=== PATIENT | male | born 1960 | race Caucasian/White ===

== ENCOUNTER → 2018-06-15 13:30 | Outpatient (CLI) | payer OTHER, SELFPAY ==
[2018-06-15 14:33] LABS: Add Manual Diff / Slide Review NO; Basophils Percent Auto 0.2 % (0-2); Eosinophils Percent Auto 1.6 % (2-4); Hematocrit 41.8 % (41-53); Hemoglobin 14.1 g/dL (13.5-17.5); Lymphocytes Percent Auto 30.2 % (25-40); Mean Corpuscular HGB Conc 33.7 % (30-36); Mean Corpuscular Hemoglobin 30.8 PG (26-34); Mean Corpuscular Volume 91.6 fL (80-100); Monocytes Percent Auto 7.4 % (3-14); Neutrophils Absolute Auto 3700 /uL (3000-5900); Neutrophils Percent Auto 60.6 % (50-75); Platelet Count 207 X10^3/uL (150-400); Red Blood Cell Count 4.56 X10^6/uL (4.5-5.9); Red Cell Distribution Width 14.2 % (11.6-14.8)
[2018-06-15 14:53] LABS: Alanine Aminotransferase 32 IU/L (21-72); Albumin 4.3 g/dL (3.5-5.0); Albumin Globulin Ratio 1.8 (1.0-2.8); Alkaline Phosphatase 70 U/L (38-126); Aspartate Aminotransferase 31 IU/L (17-59); Bilirubin Total 0.7 mg/dL (0.2-1.3); Blood Urea Nitrogen 18 mg/dL (9-20); Calcium 9.1 mg/dL (8.4-10.2); Carbon Dioxide 27 mmol/L (22-32); Chloride 106 mmol/L (98-107); Estimated Glomerular Filt Rate > 60.0 mL/min (>60); Globulin 2.4 g/dL (1.7-4.1); Glucose 91 mg/dL (70-100); HEMOLYSIS < 15 (0-50); Magnesium 2.2 mg/dL (1.6-2.3); Potassium 3.9 mmol/L (3.4-5.1); Sodium 141 mmol/L (137-145); Total Protein 6.7 g/dL (6.3-8.2)
[2018-06-15 15:46] LABS: Thyroid Stimulating Hormone 3.02 uIU/mL (0.47-4.68)
== END ==
PROVIDERS: PCP Family Medicine; Visit Provider Family Medicine
DX: R00.2 Palpitations (principal)
CPT/HCPCS: 36415; 80053; 83735; 84443; 85025

== ENCOUNTER 2019-10-17 09:00 | Outpatient (RCR) | payer OTHER, SELFPAY ==
--- NOTE | 2019-08-24 16:23 | PT.OIE ---
Current Diagnoses Unilateral primary osteoarthritis, right knee (08/24/19) Pain in right knee (08/24/19) Other abnormalities of gait and mobility (08/24/19) Arthrodesis status (08/24/19) Past Surgical History Status post knee surgery Visit Care Team Role Provider Type Jaylen Cary MD Primary Care Provider Physician Specialty: Family Practice Address: [address] [place] [address], [id number] Email: [email or web address] [email or web address] Norton PA-C Attending Provider Non-Staff Specialty: Medical Address: [address] [place] [address], [id number] Email: Physical Therapy Initial Evaluation PT-OP-A Visit Information Start: 08/24/19 07:20 Freq: Status: Active Protocol: Document 08/24/19 09:00 AMB (Rec: 08/24/19 14:19 AMB [email or web address]) Out-Patient Physical Therapy Visit Information Visit Information Visit Type Initial Evaluation Visit Start Time 09:00 Visit Stop Time 10:00 Total Visit Minutes 60 Visit Number 1 PT-OP-B Current Condition Start: 08/24/19 07:20 Freq: Status: Active Protocol: Document 08/24/19 09:00 AMB (Rec: 08/24/19 14:19 AMB [email or web address]) Current Condition History of Current Condition Onset Date 08/18/19 Current Complaints pain/weakness s/p R PKA History of Current Condition Juliano reports he had a partial knee replacement a week ago after years of right knee pain from an accident in high school that resulted in meniscectomy. He was a runner but reports significant difficulty engaging his quads even before surgery (reports doing 100# knee extension with the left and only 5# with the right prior to surgery). 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 He lives with his in a home with stairs but he lives on the main level and is not currently using the stairs. Prior Functional Status Baseline Function- ADL's Independent Baseline Function- Mobility Independent Baseline Function- Recreation/Hobbies Pain with running, weakness in quads Current Functional Impairments (Reported) Functional Limitations- Mobility/Gait Difficulty walking, stairs, unable to work due to needing to be on a boat/ getting up and down ladder. Personal Factors Other Personal Factors That May Effect Pt reports pain/anxiety with Therapy/Recovery moving knee. Longstanding history of weakness/pain in R knee. PT-OP-C Subjective Start: 08/24/19 07:20 Freq: Status: Active Protocol: Document 08/24/19 09:00 AMB (Rec: 08/24/19 14:19 AMB [email or web address]) Patient Questionnaires Lower Extremity Functional Scale LEFS Score 9 LEFS Impairment 1 to 19% Impaired (Score 63-79 ) OP-PT Pain Assessment Location Right Knee Pain Location Details R anterior knee Intensity 6 Scale Used Numeric (1 - 10) PT-OP-G Mobility & Gait Start: 08/24/19 07:20 Freq: Status: Active Protocol: Document 08/24/19 09:00 AMB (Rec: 08/24/19 14:29 AMB [email or web address]) OP Gait Assessment Comments Gait Comments Juliano attends PT without SPC and significant antalgic gait. He states he has a walker and a cane at home but doesn't like them. Stiff knee throughout gait- lacks knee flexion in swing and terminal knee extension. PT-OP-J Posture/Palpation/Skin Start: 08/24/19 07:20 Freq: Status: Active Protocol: Document 08/24/19 09:00 AMB (Rec: 08/24/19 14:29 AMB [email or web address]) Skin Assessment Other Assessments Skin Assessment Comments Incision covered by gauze and tape- pt and state steri strips are intact. Bruising ( light green) present down lateral calf and at popliteal fossa. No redness, no pitting edema, but post-operative swelling present. PT-OP-K Range of Motion Start: 08/24/19 07:20 Freq: Status: Active Protocol: Document 08/24/19 09:00 AMB (Rec: 08/24/19 14:29 AMB [email or web address]) Knee Goniometric Range of Motion Knee Right Patient Position Supine Flexion Active (degrees) 70 Flexion Passive (degrees) 73 Extension Active (degrees) 10 Extension Passive (degrees) 7 Left Patient Position Supine Flexion Active (degrees) 170 Extension Active (degrees) 0 PT-OP-M Strength Start: 08/24/19 07:20 Freq: Status: Active Protocol: Document 08/24/19 09:00 AMB (Rec: 08/24/19 16:03 AMB [email or web address]) Knee Strength Knee Manual Muscle Testing Right Flexion (S2) 4 Good Extension (L3) 2 Poor Left Flexion (S2) 5 Normal Extension (L3) 5 Normal PT-OP-Q Treatments Start: 08/24/19 07:20 Freq: Status: Active Protocol: Document 08/24/19 09:00 AMB (Rec: 08/24/19 16:03 AMB [email or web address]) Therapeutic Exercises Supine Exercises 3 Supine Exercise Name SLR Reps/Minutes 10 2 Supine Exercise Name SAQ Reps/Minutes 10 1 Supine Exercise Name heel slide Reps/Minutes 10 Gait Training Gait Activity 1 Description SPC training Device Used SPC Level of Assistance verbal cues for timing of cane , encouraged knee flexion with swing Surface firm PT-OP-R Modalities Start: 08/24/19 07:20 Freq: Status: Active Protocol: Document 08/24/19 09:00 AMB (Rec: 08/24/19 16:23 AMB [email or web address]) Hot Pack/Cold Pack Treatment Cold Pack Location R knee Patient Position Hooklying Treatment Duration (minutes) 10 Patient Tolerance Good Comments cryocuff PT-OP-T Assessment and Plan Start: 08/24/19 07:20 Freq: Status: Active Protocol: Document 08/24/19 09:00 AMB (Rec: 08/24/19 16:21 AMB [email or web address]) Physical Therapy Assessment Rehab Potential Rehabilitation Potential Good Evaluation Complexity Number of Personal Factors/Comorbidities 1-2 Number of Body Systems Impaired 4 or More Clinical Presentation at Evaluation Stable Impairments Impairments Balance,Edema,Functional Activities,Gait,Pain,ROM, Strength Goals Three Impairment ROM Short Term Goal (STG) Juliano will improve his R knee PROM to 4-100. STG Duration 4 weeks Airport Operations Officer Goal (LTG) Juliano will improve his R knee AROM to 0-120. LTG Duration 12 weeks Two Impairment strength Short Term Goal (STG) Juliano will activate his quad so that he can perform a straight leg raise without quad lag. STG Duration 4 weeks Airport Operations Officer Goal (LTG) Juliano will improve his strength so that he can perform a full squat with equal weightbearing without increasing his baseline pain. LTG Duration 12 weeks One Impairment gait Short Term Goal (STG) Juliano will improve his gait so that he can walk without AD for 5 minutes over smooth surfaces without antalgic gait . STG Duration 4 weeks Halfway Goal (LTG) Juliano will ascend and descend a flight of stairs without a railing and with an alternating gait pattern. LTG Duration 8 weeks Assessment Summary Assessment Juliano attends physical therapy 1 week s/p partial knee replacement on the R. He is restricted into both flexion and extension, has poor gait mechanics, and has poor quad control. He will need a good improvement in function, given his prior high level of function as a commercial plumber. He will benefit from physical therapy to improve his gait, ROM, and strength, but the chronic nature of his pain and weakness may make rehab more challenging. Physical Therapy Plan Frequency and Duration Frequency of Treatment 2x/Week Duration of Treatment 12 weeks Plan of Care Start Date 08/24/19 Plan of Care End Date 11/16/19 Therapeutic Interventions Therapeutic Interventions Aquatic Therapy,Gait Training, Home Exercise Program,Joint Mobilizations,Manual Therapy, Neuromuscular Re-education, Self-Care/Home Management,Soft Tissue Mobilization, Therapeutic Activities, Therapeutic Exercises Modalities Cold Pack/Ice Massage,Electric Stimulation,Hot Packs Next Visit Focus/Plan Next Note Type Treatment Note Next Visit Plan Progress ROM, strength, gait. Pt interested in getting back to the gym, so encourage safety with that.
--- NOTE | 2019-08-29 13:59 | PT.OTN ---
Current Diagnoses Unilateral primary osteoarthritis, right knee (08/29/19) Pain in right knee (08/29/19) Other abnormalities of gait and mobility (08/29/19) Arthrodesis status (08/29/19) Physical Therapy Treatment Note PT-OP-A Visit Information Start: 08/24/19 07:20 Freq: Status: Active Protocol: Document 08/29/19 12:14 MB (Rec: 08/29/19 13:58 MB [id number]) Out-Patient Physical Therapy Visit Information Visit Information Visit Type Treatment Note Visit Start Time 12:14 Visit Stop Time 12:59 Total Visit Minutes 45 Visit Number 2 Number of AWNING INSTALLER Visits 0 PT-OP-B Current Condition Start: 08/24/19 07:20 Freq: Status: Active Protocol: Document 08/24/19 09:00 AMB (Rec: 08/24/19 14:19 AMB [email or web address]) Current Condition History of Current Condition Onset Date 08/18/19 Current Complaints pain/weakness s/p R PKA History of Current Condition Juliano reports he had a partial knee replacement a week ago after years of right knee pain from an accident in high school that resulted in meniscectomy. He was a runner but reports significant difficulty engaging his quads even before surgery (reports doing 100# knee extension with the left and only 5# with the right prior to surgery). 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 He lives with his in a home with stairs but he lives on the main level and is not currently using the stairs. Prior Functional Status Baseline Function- ADL's Independent Baseline Function- Mobility Independent Baseline Function- Recreation/Hobbies Pain with running, weakness in quads Current Functional Impairments (Reported) Functional Limitations- Mobility/Gait Difficulty walking, stairs, unable to work due to needing to be on a boat/ getting up and down ladder. Personal Factors Other Personal Factors That May Effect Pt reports pain/anxiety with Therapy/Recovery moving knee. Longstanding history of weakness/pain in R knee. PT-OP-C Subjective Start: 08/24/19 07:20 Freq: Status: Active Protocol: Document 08/29/19 12:14 MB (Rec: 08/29/19 13:01 MB [id number]) OP-PT Subjective Patient Comments Patient Comments Pt states that he is now only taking Advil. He is moving a lot better. He is driving. He can go up stairs. He's climbed a ladder. PT encourages him not to do this. He is waking up at night. His sleep is affected. He is waking up about midnight. Patient Reported Progress Improving OP-PT Pain Assessment Location Right Knee Pain Location Details Right anterior knee, not rated PT-OP-G Mobility & Gait Start: 08/24/19 07:20 Freq: Status: Active Protocol: Document 08/24/19 09:00 AMB (Rec: 08/24/19 14:29 AMB [email or web address]) OP Gait Assessment Comments Gait Comments Juliano attends PT without SPC and significant antalgic gait. He states he has a walker and a cane at home but doesn't like them. Stiff knee throughout gait- lacks knee flexion in swing and terminal knee extension. PT-OP-J Posture/Palpation/Skin Start: 08/24/19 07:20 Freq: Status: Active Protocol: Document 08/24/19 09:00 AMB (Rec: 08/24/19 14:29 AMB [email or web address]) Skin Assessment Other Assessments Skin Assessment Comments Incision covered by gauze and tape- pt and state steri strips are intact. Bruising ( light green) present down lateral calf and at popliteal fossa. No redness, no pitting edema, but post-operative swelling present. PT-OP-K Range of Motion Start: 08/24/19 07:20 Freq: Status: Active Protocol: Document 08/24/19 09:00 AMB (Rec: 08/24/19 14:29 AMB [email or web address]) Knee Goniometric Range of Motion Knee Right Patient Position Supine Flexion Active (degrees) 70 Flexion Passive (degrees) 73 Extension Active (degrees) 10 Extension Passive (degrees) 7 Left Patient Position Supine Flexion Active (degrees) 170 Extension Active (degrees) 0 PT-OP-M Strength Start: 08/24/19 07:20 Freq: Status: Active Protocol: Document 08/24/19 09:00 AMB (Rec: 08/24/19 16:03 AMB [email or web address]) Knee Strength Knee Manual Muscle Testing Right Flexion (S2) 4 Good Extension (L3) 2 Poor Left Flexion (S2) 5 Normal Extension (L3) 5 Normal PT-OP-Q Treatments Start: 08/24/19 07:20 Freq: Status: Active Protocol: Document 08/29/19 12:14 MB (Rec: 08/29/19 13:01 MB [id number]) Cardio Equipment Recumbent Elliptical (Biodex) Duration (Minutes) 10 Resistance 1-4 Other Cardio Equipment Other Cardio Equipment Tried recumbent bike but pt cannot flex knee enough Therapeutic Exercises Supine Exercises Brad stretch Comments Brad stretch Hamstring, calf and AP stretch Supine Exercise Name Adductor/abductor stretch along with this Comments Use of belt (pt to use boat line at home), hamstring, calf and AP stretch Manual Therapy Treatment Soft Tissue Mobilization R rectus, vastus lateralis Comments STM right rectus and vastus lateralis, manual and with use of rolling pin. Self-Care/Home Management Treatment Education Other Education Use of Tubagrip for compression 1-2 hours before bed, elevation, icing Wear thigh high compression when driving, sitting PT-OP-R Modalities Start: 08/24/19 07:20 Freq: Status: Active Protocol: Document 08/24/19 09:00 AMB (Rec: 08/24/19 16:23 AMB [email or web address]) Hot Pack/Cold Pack Treatment Cold Pack Location R knee Patient Position Hooklying Treatment Duration (minutes) 10 Patient Tolerance Good Comments cryocuff PT-OP-T Assessment and Plan Start: 08/24/19 07:20 Freq: Status: Active Protocol: Document 08/29/19 12:14 MB (Rec: 08/29/19 13:01 MB [id number]) Physical Therapy Assessment Assessment Summary Assessment Increased tension quads, ITB and hip adductors with Brad stretch right LE. Manual work on rectus femoris and vastus laterlis today. Physical Therapy Plan Frequency and Duration Frequency of Treatment 2x/Week Duration of Treatment 12 weeks Plan of Care Start Date 08/24/19 Plan of Care End Date 11/16/19 Therapeutic Interventions Therapeutic Interventions Aquatic Therapy,Gait Training, Home Exercise Program,Joint Mobilizations,Manual Therapy, Neuromuscular Re-education, Self-Care/Home Management,Soft Tissue Mobilization, Therapeutic Activities, Therapeutic Exercises Modalities Cold Pack/Ice Massage,Electric Stimulation,Hot Packs Next Visit Focus/Plan Next Note Type Treatment Note Next Visit Plan Consider teaching rolling pin self-massage
--- NOTE | 2019-08-31 08:00 | PT.OTN ---
Current Diagnoses Unilateral primary osteoarthritis, right knee (08/31/19) Pain in right knee (08/31/19) Other abnormalities of gait and mobility (08/31/19) Arthrodesis status (08/31/19) Physical Therapy Treatment Note PT-OP-A Visit Information Start: 08/24/19 07:20 Freq: Status: Active Protocol: Document 08/31/19 07:29 MB (Rec: 08/31/19 08:00 MB [id number]) Out-Patient Physical Therapy Visit Information Visit Information Visit Type Treatment Note Visit Start Time 07:29 Visit Stop Time 08:14 Total Visit Minutes 45 Visit Number 3 Number of ROCK LOADER Visits 0 PT-OP-B Current Condition Start: 08/24/19 07:20 Freq: Status: Active Protocol: Document 08/24/19 09:00 AMB (Rec: 08/24/19 14:19 AMB [email or web address]) Current Condition History of Current Condition Onset Date 08/18/19 Current Complaints pain/weakness s/p R PKA History of Current Condition Juliano reports he had a partial knee replacement a week ago after years of right knee pain from an accident in high school that resulted in meniscectomy. He was a runner but reports significant difficulty engaging his quads even before surgery (reports doing 100# knee extension with the left and only 5# with the right prior to surgery). 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 He lives with his in a home with stairs but he lives on the main level and is not currently using the stairs. Prior Functional Status Baseline Function- ADL's Independent Baseline Function- Mobility Independent Baseline Function- Recreation/Hobbies Pain with running, weakness in quads Current Functional Impairments (Reported) Functional Limitations- Mobility/Gait Difficulty walking, stairs, unable to work due to needing to be on a boat/ getting up and down ladder. Personal Factors Other Personal Factors That May Effect Pt reports pain/anxiety with Therapy/Recovery moving knee. Longstanding history of weakness/pain in R knee. PT-OP-C Subjective Start: 08/24/19 07:20 Freq: Status: Active Protocol: Document 08/31/19 07:29 MB (Rec: 08/31/19 08:00 MB [id number]) OP-PT Subjective Patient Comments Patient Comments Pt is still waking up after 4 hours of sleep. He is sleeping in the day some. Ed to place pillow under his knees when he wakes up to help pain. Pt states that he is doing 3 sets of SLR, SAQ and LAQ and c/o pain but is not as open to changing reps or other suggestions. He is having trouble finding a place doing Brad stretch. PT-OP-G Mobility & Gait Start: 08/24/19 07:20 Freq: Status: Active Protocol: Document 08/24/19 09:00 AMB (Rec: 08/24/19 14:29 AMB [email or web address]) OP Gait Assessment Comments Gait Comments Juliano attends PT without SPC and significant antalgic gait. He states he has a walker and a cane at home but doesn't like them. Stiff knee throughout gait- lacks knee flexion in swing and terminal knee extension. PT-OP-J Posture/Palpation/Skin Start: 08/24/19 07:20 Freq: Status: Active Protocol: Document 08/24/19 09:00 AMB (Rec: 08/24/19 14:29 AMB [email or web address]) Skin Assessment Other Assessments Skin Assessment Comments Incision covered by gauze and tape- pt and state steri strips are intact. Bruising ( light green) present down lateral calf and at popliteal fossa. No redness, no pitting edema, but post-operative swelling present. PT-OP-K Range of Motion Start: 08/24/19 07:20 Freq: Status: Active Protocol: Document 08/24/19 09:00 AMB (Rec: 08/24/19 14:29 AMB [email or web address]) Knee Goniometric Range of Motion Knee Right Patient Position Supine Flexion Active (degrees) 70 Flexion Passive (degrees) 73 Extension Active (degrees) 10 Extension Passive (degrees) 7 Left Patient Position Supine Flexion Active (degrees) 170 Extension Active (degrees) 0 PT-OP-M Strength Start: 08/24/19 07:20 Freq: Status: Active Protocol: Document 08/24/19 09:00 AMB (Rec: 08/24/19 16:03 AMB [email or web address]) Knee Strength Knee Manual Muscle Testing Right Flexion (S2) 4 Good Extension (L3) 2 Poor Left Flexion (S2) 5 Normal Extension (L3) 5 Normal PT-OP-Q Treatments Start: 08/24/19 07:20 Freq: Status: Active Protocol: Document 08/31/19 07:29 MB (Rec: 08/31/19 08:00 MB [id number]) Cardio Equipment Recumbent Elliptical (Biodex) Duration (Minutes) 15 Resistance 4-5.2 Therapeutic Exercises Supine Exercises 3 Supine Exercise Name SLR Reps/Minutes 5 counting slowly up and down Sitting Exercises Rolling pin massage Sitting Exercise Name Rolling pin massage, see saw motion LAQ with ball between knees Sitting Exercise Name LAQ with ball between knees, 10 reps Manual Therapy Treatment Other Other Manual Treatments Rolling pin right quad and vastus lateralis STM PT-OP-R Modalities Start: 08/24/19 07:20 Freq: Status: Active Protocol: Document 08/24/19 09:00 AMB (Rec: 08/24/19 16:23 AMB [email or web address]) Hot Pack/Cold Pack Treatment Cold Pack Location R knee Patient Position Hooklying Treatment Duration (minutes) 10 Patient Tolerance Good Comments cryocuff PT-OP-T Assessment and Plan Start: 08/24/19 07:20 Freq: Status: Active Protocol: Document 08/31/19 07:29 MB (Rec: 08/31/19 08:00 MB [id number]) Physical Therapy Assessment Goals Three Impairment ROM Short Term Goal (STG) Juliano will improve his R knee PROM to 4-100. STG Duration 4 weeks Group Home Goal (LTG) Juliano will improve his R knee AROM to 0-120. LTG Duration 12 weeks Two Impairment strength Short Term Goal (STG) Juliano will activate his quad so that he can perform a straight leg raise without quad lag. STG Duration 4 weeks Arc Welder Goal (LTG) Juliano will improve his strength so that he can perform a full squat with equal weightbearing without increasing his baseline pain. LTG Duration 12 weeks One Impairment gait Short Term Goal (STG) Juliano will improve his gait so that he can walk without AD for 5 minutes over smooth surfaces without antalgic gait . STG Duration 4 weeks Group Home Goal (LTG) Juliano will ascend and descend a flight of stairs without a railing and with an alternating gait pattern. LTG Duration 8 weeks Progress Towards Goals Progress Comments Pt states that he feels he is getting better. He is still not sleeping well. He con't with antalgic gait with cane. Assessment Summary Assessment Initated rolling pin on right quad this date. Physical Therapy Plan Frequency and Duration Frequency of Treatment 2x/Week Duration of Treatment 12 weeks Plan of Care Start Date 08/24/19 Plan of Care End Date 11/16/19 Therapeutic Interventions Therapeutic Interventions Aquatic Therapy,Gait Training, Home Exercise Program,Joint Mobilizations,Manual Therapy, Neuromuscular Re-education, Self-Care/Home Management,Soft Tissue Mobilization, Therapeutic Activities, Therapeutic Exercises Modalities Cold Pack/Ice Massage,Electric Stimulation,Hot Packs Next Visit Focus/Plan Next Note Type Treatment Note Next Visit Plan Consider progression, try stationary bike, progress to shuttle
--- NOTE | 2019-08-31 08:05 | PT.OTN ---
Current Diagnoses Unilateral primary osteoarthritis, right knee (08/31/19) Pain in right knee (08/31/19) Other abnormalities of gait and mobility (08/31/19) Arthrodesis status (08/31/19) Physical Therapy Treatment Note PT-OP-A Visit Information Start: 08/24/19 07:20 Freq: Status: Active Protocol: Document 08/31/19 07:29 MB (Rec: 08/31/19 08:00 MB [id number]) Out-Patient Physical Therapy Visit Information Visit Information Visit Type Treatment Note Visit Start Time 07:29 Visit Stop Time 08:14 Total Visit Minutes 45 Visit Number 3 Number of COOLER MAN Visits 0 PT-OP-B Current Condition Start: 08/24/19 07:20 Freq: Status: Active Protocol: Document 08/24/19 09:00 AMB (Rec: 08/24/19 14:19 AMB [email or web address]) Current Condition History of Current Condition Onset Date 08/18/19 Current Complaints pain/weakness s/p R PKA History of Current Condition Juliano reports he had a partial knee replacement a week ago after years of right knee pain from an accident in high school that resulted in meniscectomy. He was a runner but reports significant difficulty engaging his quads even before surgery (reports doing 100# knee extension with the left and only 5# with the right prior to surgery). 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 He lives with his in a home with stairs but he lives on the main level and is not currently using the stairs. Prior Functional Status Baseline Function- ADL's Independent Baseline Function- Mobility Independent Baseline Function- Recreation/Hobbies Pain with running, weakness in quads Current Functional Impairments (Reported) Functional Limitations- Mobility/Gait Difficulty walking, stairs, unable to work due to needing to be on a boat/ getting up and down ladder. Personal Factors Other Personal Factors That May Effect Pt reports pain/anxiety with Therapy/Recovery moving knee. Longstanding history of weakness/pain in R knee. PT-OP-C Subjective Start: 08/24/19 07:20 Freq: Status: Active Protocol: Document 08/31/19 07:29 MB (Rec: 08/31/19 08:00 MB [id number]) OP-PT Subjective Patient Comments Patient Comments Pt is still waking up after 4 hours of sleep. He is sleeping in the day some. Ed to place pillow under his knees when he wakes up to help pain. Pt states that he is doing 3 sets of SLR, SAQ and LAQ and c/o pain but is not as open to changing reps or other suggestions. He is having trouble finding a place doing Brad stretch. PT-OP-G Mobility & Gait Start: 08/24/19 07:20 Freq: Status: Active Protocol: Document 08/24/19 09:00 AMB (Rec: 08/24/19 14:29 AMB [email or web address]) OP Gait Assessment Comments Gait Comments Juliano attends PT without SPC and significant antalgic gait. He states he has a walker and a cane at home but doesn't like them. Stiff knee throughout gait- lacks knee flexion in swing and terminal knee extension. PT-OP-J Posture/Palpation/Skin Start: 08/24/19 07:20 Freq: Status: Active Protocol: Document 08/24/19 09:00 AMB (Rec: 08/24/19 14:29 AMB [email or web address]) Skin Assessment Other Assessments Skin Assessment Comments Incision covered by gauze and tape- pt and state steri strips are intact. Bruising ( light green) present down lateral calf and at popliteal fossa. No redness, no pitting edema, but post-operative swelling present. PT-OP-K Range of Motion Start: 08/24/19 07:20 Freq: Status: Active Protocol: Document 08/24/19 09:00 AMB (Rec: 08/24/19 14:29 AMB [email or web address]) Knee Goniometric Range of Motion Knee Right Patient Position Supine Flexion Active (degrees) 70 Flexion Passive (degrees) 73 Extension Active (degrees) 10 Extension Passive (degrees) 7 Left Patient Position Supine Flexion Active (degrees) 170 Extension Active (degrees) 0 PT-OP-M Strength Start: 08/24/19 07:20 Freq: Status: Active Protocol: Document 08/24/19 09:00 AMB (Rec: 08/24/19 16:03 AMB [email or web address]) Knee Strength Knee Manual Muscle Testing Right Flexion (S2) 4 Good Extension (L3) 2 Poor Left Flexion (S2) 5 Normal Extension (L3) 5 Normal PT-OP-Q Treatments Start: 08/24/19 07:20 Freq: Status: Active Protocol: Document 08/31/19 07:29 MB (Rec: 08/31/19 08:00 MB [id number]) Cardio Equipment Recumbent Elliptical (Biodex) Duration (Minutes) 15 Resistance 4-5.2 Therapeutic Exercises Supine Exercises 3 Supine Exercise Name SLR Reps/Minutes 5 counting slowly up and down Sitting Exercises Rolling pin massage Sitting Exercise Name Rolling pin massage, see saw motion LAQ with ball between knees Sitting Exercise Name LAQ with ball between knees, 10 reps Manual Therapy Treatment Other Other Manual Treatments Rolling pin right quad and vastus lateralis STM PT-OP-R Modalities Start: 08/24/19 07:20 Freq: Status: Active Protocol: Document 08/24/19 09:00 AMB (Rec: 08/24/19 16:23 AMB [email or web address]) Hot Pack/Cold Pack Treatment Cold Pack Location R knee Patient Position Hooklying Treatment Duration (minutes) 10 Patient Tolerance Good Comments cryocuff PT-OP-T Assessment and Plan Start: 08/24/19 07:20 Freq: Status: Active Protocol: Document 08/31/19 07:29 MB (Rec: 08/31/19 08:00 MB [id number]) Physical Therapy Assessment Goals Three Impairment ROM Short Term Goal (STG) Juliano will improve his R knee PROM to 4-100. STG Duration 4 weeks Mcc Goal (LTG) Juliano will improve his R knee AROM to 0-120. LTG Duration 12 weeks Two Impairment strength Short Term Goal (STG) Juliano will activate his quad so that he can perform a straight leg raise without quad lag. STG Duration 4 weeks Spout Positioner Goal (LTG) Juliano will improve his strength so that he can perform a full squat with equal weightbearing without increasing his baseline pain. LTG Duration 12 weeks One Impairment gait Short Term Goal (STG) Juliano will improve his gait so that he can walk without AD for 5 minutes over smooth surfaces without antalgic gait . STG Duration 4 weeks Mcc Goal (LTG) Juliano will ascend and descend a flight of stairs without a railing and with an alternating gait pattern. LTG Duration 8 weeks Progress Towards Goals Progress Comments Pt states that he feels he is getting better. He is still not sleeping well. He con't with antalgic gait with cane. Assessment Summary Assessment Initated rolling pin on right quad this date. Physical Therapy Plan Frequency and Duration Frequency of Treatment 2x/Week Duration of Treatment 12 weeks Plan of Care Start Date 08/24/19 Plan of Care End Date 11/16/19 Therapeutic Interventions Therapeutic Interventions Aquatic Therapy,Gait Training, Home Exercise Program,Joint Mobilizations,Manual Therapy, Neuromuscular Re-education, Self-Care/Home Management,Soft Tissue Mobilization, Therapeutic Activities, Therapeutic Exercises Modalities Cold Pack/Ice Massage,Electric Stimulation,Hot Packs Next Visit Focus/Plan Next Note Type Treatment Note Next Visit Plan Consider progression, try stationary bike, progress to shuttle
--- NOTE | 2019-09-05 08:57 | PT.OTN ---
Current Diagnoses Unilateral primary osteoarthritis, right knee (09/05/19) Pain in right knee (09/05/19) Other abnormalities of gait and mobility (09/05/19) Arthrodesis status (09/05/19) Physical Therapy Treatment Note PT-OP-A Visit Information Start: 08/24/19 07:20 Freq: Status: Active Protocol: Document 09/05/19 08:16 MB (Rec: 09/05/19 08:57 MB [id number]) Out-Patient Physical Therapy Visit Information Visit Information Visit Type Treatment Note Visit Start Time 08:16 Visit Stop Time 08:54 Total Visit Minutes 38 Visit Number 4 Number of DELICATESSEN DEPARTMENT MANAGER Visits 0 PT-OP-B Current Condition Start: 08/24/19 07:20 Freq: Status: Active Protocol: Document 08/24/19 09:00 AMB (Rec: 08/24/19 14:19 AMB [email or web address]) Current Condition History of Current Condition Onset Date 08/18/19 Current Complaints pain/weakness s/p R PKA History of Current Condition Juliano reports he had a partial knee replacement a week ago after years of right knee pain from an accident in high school that resulted in meniscectomy. He was a runner but reports significant difficulty engaging his quads even before surgery (reports doing 100# knee extension with the left and only 5# with the right prior to surgery). 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 He lives with his in a home with stairs but he lives on the main level and is not currently using the stairs. Prior Functional Status Baseline Function- ADL's Independent Baseline Function- Mobility Independent Baseline Function- Recreation/Hobbies Pain with running, weakness in quads Current Functional Impairments (Reported) Functional Limitations- Mobility/Gait Difficulty walking, stairs, unable to work due to needing to be on a boat/ getting up and down ladder. Personal Factors Other Personal Factors That May Effect Pt reports pain/anxiety with Therapy/Recovery moving knee. Longstanding history of weakness/pain in R knee. PT-OP-C Subjective Start: 08/24/19 07:20 Freq: Status: Active Protocol: Document 09/05/19 08:16 MB (Rec: 09/05/19 08:57 MB [id number]) OP-PT Subjective Patient Comments Patient Comments Pt states that he went to the doctor and got a good report that he is ahead of schedule and that he has no restrictions. He has been going to the gym and doing the following exercises on machines for his legs: prone hamstring curl machine, LAQs, mini squats, hip adduction and abduction. He is doing PT exercises 2-3 times a day. He is back to boat activities. Patient Reported Progress Improving PT-OP-G Mobility & Gait Start: 08/24/19 07:20 Freq: Status: Active Protocol: Document 08/24/19 09:00 AMB (Rec: 08/24/19 14:29 AMB [email or web address]) OP Gait Assessment Comments Gait Comments Juliano attends PT without SPC and significant antalgic gait. He states he has a walker and a cane at home but doesn't like them. Stiff knee throughout gait- lacks knee flexion in swing and terminal knee extension. PT-OP-J Posture/Palpation/Skin Start: 08/24/19 07:20 Freq: Status: Active Protocol: Document 08/24/19 09:00 AMB (Rec: 08/24/19 14:29 AMB [email or web address]) Skin Assessment Other Assessments Skin Assessment Comments Incision covered by gauze and tape- pt and state steri strips are intact. Bruising ( light green) present down lateral calf and at popliteal fossa. No redness, no pitting edema, but post-operative swelling present. PT-OP-K Range of Motion Start: 08/24/19 07:20 Freq: Status: Active Protocol: Document 08/24/19 09:00 AMB (Rec: 08/24/19 14:29 AMB [email or web address]) Knee Goniometric Range of Motion Knee Right Patient Position Supine Flexion Active (degrees) 70 Flexion Passive (degrees) 73 Extension Active (degrees) 10 Extension Passive (degrees) 7 Left Patient Position Supine Flexion Active (degrees) 170 Extension Active (degrees) 0 PT-OP-M Strength Start: 08/24/19 07:20 Freq: Status: Active Protocol: Document 08/24/19 09:00 AMB (Rec: 08/24/19 16:03 AMB [email or web address]) Knee Strength Knee Manual Muscle Testing Right Flexion (S2) 4 Good Extension (L3) 2 Poor Left Flexion (S2) 5 Normal Extension (L3) 5 Normal PT-OP-Q Treatments Start: 08/24/19 07:20 Freq: Status: Active Protocol: Document 09/05/19 08:16 MB (Rec: 09/05/19 08:57 MB [id number]) Therapeutic Exercises Prone Exercises Downward dog Comments Downward dog with alternating heel raises Sitting Exercises Hip abd/add Comments 60 lb abduction; 70 lb adduction, 5 reps Knee flexion Comments 5 reps knee flexion 50 lb, uses left leg more Knee extension Comments 5 reps 40 lb, uses left leg more Standing Exercises Multifidi push out heel raise Comments Added to HEP--multifidi push out with heel raise Other Exercises Shuttle, leg press Comments 100 lbs, ball between knees PT-OP-R Modalities Start: 08/24/19 07:20 Freq: Status: Active Protocol: Document 08/24/19 09:00 AMB (Rec: 08/24/19 16:23 AMB [email or web address]) Hot Pack/Cold Pack Treatment Cold Pack Location R knee Patient Position Hooklying Treatment Duration (minutes) 10 Patient Tolerance Good Comments cryocuff PT-OP-T Assessment and Plan Start: 08/24/19 07:20 Freq: Status: Active Protocol: Document 09/05/19 08:16 MB (Rec: 09/05/19 08:57 MB [id number]) Physical Therapy Assessment Assessment Summary Assessment Pt con't to perform exercises 2-3 times a day and has added LE strengthening with machines at gym. He is resisted to decreasing any exercises and is not particularly concerned about form. Will con't to assess form and try not to over prescribe PT exercises. He has abnormal gait without cane, but it is better. Physical Therapy Plan Frequency and Duration Frequency of Treatment 2x/Week Duration of Treatment 12 weeks Plan of Care Start Date 08/24/19 Plan of Care End Date 11/16/19 Therapeutic Interventions Therapeutic Interventions Aquatic Therapy,Gait Training, Home Exercise Program,Joint Mobilizations,Manual Therapy, Neuromuscular Re-education, Self-Care/Home Management,Soft Tissue Mobilization, Therapeutic Activities, Therapeutic Exercises Modalities Cold Pack/Ice Massage,Electric Stimulation,Hot Packs Next Visit Focus/Plan Next Note Type Treatment Note Next Visit Plan Con't to monitor form for consider adding mini squats, sit to stands, yoga poses, bridging over ball, scar massage when scab gone. Con't to assess performance of knee ROM on upright bike. Con't balance training. He wants to run a mile on treadmill, PT is apprehensive about this. If he con't to state this, would like MD order.
--- NOTE | 2019-09-07 11:54 | PT.OTN ---
Current Diagnoses Unilateral primary osteoarthritis, right knee (09/07/19) Pain in right knee (09/07/19) Other abnormalities of gait and mobility (09/07/19) Arthrodesis status (09/07/19) Physical Therapy Treatment Note PT-OP-A Visit Information Start: 08/24/19 07:20 Freq: Status: Active Protocol: Document 09/07/19 08:15 AMB (Rec: 09/07/19 09:02 AMB [email or web address]) Out-Patient Physical Therapy Visit Information Visit Information Visit Type Treatment Note Visit Start Time 08:15 Visit Stop Time 09:10 Total Visit Minutes 55 Visit Number 5 Number of INTERNATIONAL LOGISTICS COORDINATOR Visits 0 PT-OP-B Current Condition Start: 08/24/19 07:20 Freq: Status: Active Protocol: Document 08/24/19 09:00 AMB (Rec: 08/24/19 14:19 AMB [email or web address]) Current Condition History of Current Condition Onset Date 08/18/19 Current Complaints pain/weakness s/p R PKA History of Current Condition Juliano reports he had a partial knee replacement a week ago after years of right knee pain from an accident in high school that resulted in meniscectomy. He was a runner but reports significant difficulty engaging his quads even before surgery (reports doing 100# knee extension with the left and only 5# with the right prior to surgery). 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 He lives with his in a home with stairs but he lives on the main level and is not currently using the stairs. Prior Functional Status Baseline Function- ADL's Independent Baseline Function- Mobility Independent Baseline Function- Recreation/Hobbies Pain with running, weakness in quads Current Functional Impairments (Reported) Functional Limitations- Mobility/Gait Difficulty walking, stairs, unable to work due to needing to be on a boat/ getting up and down ladder. Personal Factors Other Personal Factors That May Effect Pt reports pain/anxiety with Therapy/Recovery moving knee. Longstanding history of weakness/pain in R knee. PT-OP-C Subjective Start: 08/24/19 07:20 Freq: Status: Active Protocol: Document 09/07/19 08:15 AMB (Rec: 09/10/19 11:53 AMB [email or web address]) OP-PT Subjective Patient Comments Patient Comments Juliano reports he is going to the gym and working on strengthening, swelling is still a problem for him. PT-OP-G Mobility & Gait Start: 08/24/19 07:20 Freq: Status: Active Protocol: Document 08/24/19 09:00 AMB (Rec: 08/24/19 14:29 AMB [email or web address]) OP Gait Assessment Comments Gait Comments Juliano attends PT without SPC and significant antalgic gait. He states he has a walker and a cane at home but doesn't like them. Stiff knee throughout gait- lacks knee flexion in swing and terminal knee extension. PT-OP-J Posture/Palpation/Skin Start: 08/24/19 07:20 Freq: Status: Active Protocol: Document 08/24/19 09:00 AMB (Rec: 08/24/19 14:29 AMB [email or web address]) Skin Assessment Other Assessments Skin Assessment Comments Incision covered by gauze and tape- pt and state steri strips are intact. Bruising ( light green) present down lateral calf and at popliteal fossa. No redness, no pitting edema, but post-operative swelling present. PT-OP-K Range of Motion Start: 08/24/19 07:20 Freq: Status: Active Protocol: Document 09/07/19 08:23 AMB (Rec: 09/07/19 08:23 AMB [id number]) Knee Goniometric Range of Motion Knee Right Flexion Active (degrees) 93 Extension Active (degrees) 10 PT-OP-M Strength Start: 08/24/19 07:20 Freq: Status: Active Protocol: Document 08/24/19 09:00 AMB (Rec: 08/24/19 16:03 AMB [email or web address]) Knee Strength Knee Manual Muscle Testing Right Flexion (S2) 4 Good Extension (L3) 2 Poor Left Flexion (S2) 5 Normal Extension (L3) 5 Normal PT-OP-Q Treatments Start: 08/24/19 07:20 Freq: Status: Active Protocol: Document 09/07/19 08:15 AMB (Rec: 09/10/19 11:53 AMB [email or web address]) Cardio Equipment Bicycle (Upright) Duration (Minutes) 5 Resistance 8 Gym Equipment Shuttle Recovery Unilateral Squats Resistance 50# Reps/Time 2x10 Shuttle Balance 1 Details RED Comments WBOS eyes open Therapeutic Exercises Supine Exercises Brad stretch Reps/Minutes 30x4 Hamstring, calf and AP stretch Reps/Minutes 30x4 3 Supine Exercise Name SLR Reps/Minutes 5 counting slowly up and down Manual Therapy Treatment Joint Mobilizations 1 Joint AP and PA tibiofemoral Grade III Body Position Hooklying Other Other Manual Treatments PROM into flexion and extension PT-OP-R Modalities Start: 08/24/19 07:20 Freq: Status: Active Protocol: Document 09/07/19 08:15 AMB (Rec: 09/10/19 11:54 AMB [email or web address]) Hot Pack/Cold Pack Treatment Cold Pack Location R knee Patient Position Hooklying Treatment Duration (minutes) 10 Patient Tolerance Good Comments cryocuff PT-OP-T Assessment and Plan Start: 08/24/19 07:20 Freq: Status: Active Protocol: Document 09/07/19 08:15 AMB (Rec: 09/10/19 11:53 AMB [email or web address]) Physical Therapy Assessment Assessment Summary Assessment Encouraged Juliano to work on his ROM, not just strengthening. He is quite stiff considering he only had a PKA, and also educated on the importance of regaining full extension for a normal gait pattern. Juliano also verbalizes concern over possibility of not being able to return to running. When he is on his fishing boat, that is really the only cardio that he has available to him. Physical Therapy Plan Next Visit Focus/Plan Next Note Type Progress Note Next Visit Plan [employer] paperwork due next visit. Consider adding mini squats, sit to stands, yoga poses, bridging over ball, scar massage when scab gone. Balance training, encourage stretching throughout the day.
--- NOTE | 2019-09-12 09:45 | PT.OTN ---
Current Diagnoses Unilateral primary osteoarthritis, right knee (09/12/19) Pain in right knee (09/12/19) Other abnormalities of gait and mobility (09/12/19) Arthrodesis status (09/12/19) Physical Therapy Treatment Note PT-OP-A Visit Information Start: 08/24/19 07:20 Freq: Status: Active Protocol: Document 09/12/19 09:02 MB (Rec: 09/12/19 09:37 MB [id number]) Out-Patient Physical Therapy Visit Information Visit Information Visit Type Treatment Note Visit Start Time 09:02 Visit Stop Time 09:45 Total Visit Minutes 43 Visit Number 6 Number of LINE PERSON Visits 0 PT-OP-B Current Condition Start: 08/24/19 07:20 Freq: Status: Active Protocol: Document 08/24/19 09:00 AMB (Rec: 08/24/19 14:19 AMB [email or web address]) Current Condition History of Current Condition Onset Date 08/18/19 Current Complaints pain/weakness s/p R PKA History of Current Condition Juliano reports he had a partial knee replacement a week ago after years of right knee pain from an accident in high school that resulted in meniscectomy. He was a runner but reports significant difficulty engaging his quads even before surgery (reports doing 100# knee extension with the left and only 5# with the right prior to surgery). 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 He lives with his in a home with stairs but he lives on the main level and is not currently using the stairs. Prior Functional Status Baseline Function- ADL's Independent Baseline Function- Mobility Independent Baseline Function- Recreation/Hobbies Pain with running, weakness in quads Current Functional Impairments (Reported) Functional Limitations- Mobility/Gait Difficulty walking, stairs, unable to work due to needing to be on a boat/ getting up and down ladder. Personal Factors Other Personal Factors That May Effect Pt reports pain/anxiety with Therapy/Recovery moving knee. Longstanding history of weakness/pain in R knee. PT-OP-C Subjective Start: 08/24/19 07:20 Freq: Status: Active Protocol: Document 09/12/19 09:02 MB (Rec: 09/12/19 09:37 MB [id number]) OP-PT Subjective Patient Comments Patient Comments Pt states that he is doing good. He is off the advil. He is sleeping normally. Pt is doing weight lifting. Patient Questionnaires Lower Extremity Functional Scale LEFS Score 59 LEFS Impairment 20 to 39% Impaired (Score 48- 62) OP-PT Pain Assessment Comments Pain Comments Pt reports right knee pain with HS, con't to ed pt to do it. He does not rate pain. PT-OP-G Mobility & Gait Start: 08/24/19 07:20 Freq: Status: Active Protocol: Document 08/24/19 09:00 AMB (Rec: 08/24/19 14:29 AMB [email or web address]) OP Gait Assessment Comments Gait Comments Juliano attends PT without SPC and significant antalgic gait. He states he has a walker and a cane at home but doesn't like them. Stiff knee throughout gait- lacks knee flexion in swing and terminal knee extension. PT-OP-J Posture/Palpation/Skin Start: 08/24/19 07:20 Freq: Status: Active Protocol: Document 08/24/19 09:00 AMB (Rec: 08/24/19 14:29 AMB [email or web address]) Skin Assessment Other Assessments Skin Assessment Comments Incision covered by gauze and tape- pt and state steri strips are intact. Bruising ( light green) present down lateral calf and at popliteal fossa. No redness, no pitting edema, but post-operative swelling present. PT-OP-K Range of Motion Start: 08/24/19 07:20 Freq: Status: Active Protocol: Document 09/07/19 08:23 AMB (Rec: 09/07/19 08:23 AMB [id number]) Knee Goniometric Range of Motion Knee Right Flexion Active (degrees) 93 Extension Active (degrees) 10 PT-OP-M Strength Start: 08/24/19 07:20 Freq: Status: Active Protocol: Document 08/24/19 09:00 AMB (Rec: 08/24/19 16:03 AMB [email or web address]) Knee Strength Knee Manual Muscle Testing Right Flexion (S2) 4 Good Extension (L3) 2 Poor Left Flexion (S2) 5 Normal Extension (L3) 5 Normal PT-OP-Q Treatments Start: 08/24/19 07:20 Freq: Status: Active Protocol: Document 09/12/19 09:02 MB (Rec: 09/12/19 09:37 MB [id number]) Cardio Equipment Recumbent Bicycle Duration (Minutes) 12 Resistance 12-20 Therapeutic Exercises Supine Exercises For range today Comments HS, SLR, strap to pull foot back in HS position in supine and to flex prone PT-OP-R Modalities Start: 08/24/19 07:20 Freq: Status: Active Protocol: Document 09/07/19 08:15 AMB (Rec: 09/10/19 11:54 AMB [email or web address]) Hot Pack/Cold Pack Treatment Cold Pack Location R knee Patient Position Hooklying Treatment Duration (minutes) 10 Patient Tolerance Good Comments cryocuff PT-OP-T Assessment and Plan Start: 08/24/19 07:20 Freq: Status: Active Protocol: Document 09/12/19 09:02 MB (Rec: 09/12/19 09:37 MB [id number]) Physical Therapy Assessment Goals Three Impairment ROM Short Term Goal (STG) Juliano will improve his R knee PROM to 4-100. STG Duration 4 weeks Shelter Goal (LTG) Juliano will improve his R knee AROM to 0-120. LTG Duration 12 weeks Two Impairment strength Short Term Goal (STG) Juliano will activate his quad so that he can perform a straight leg raise without quad lag. STG Duration 4 weeks Rehabilitation Program Coordinator Goal (LTG) Juliano will improve his strength so that he can perform a full squat with equal weightbearing without increasing his baseline pain. LTG Duration 12 weeks One Impairment gait Short Term Goal (STG) Juliano will improve his gait so that he can walk without AD for 5 minutes over smooth surfaces without antalgic gait . STG Duration 4 weeks Shelter Goal (LTG) Juliano will ascend and descend a flight of stairs without a railing and with an alternating gait pattern. LTG Duration 8 weeks Assessment Summary Assessment Pt has progressed towards the following PT goals: right knee AROM in supine, strength, LE functional index score, quad lag with SLR, gait without AD and performance of HEP. He con 't to present with antalgic gait with decreased right heel strike and knee extension, and decreased right knee extension and flexion with AROM in supine 8-100 deg. Con' t to encourage pt to perform SLR with quad contraction and ankle DF and AAROM knee flexion with belt. Physical Therapy Plan Frequency and Duration Frequency of Treatment 2x/Week Duration of Treatment 12 weeks Plan of Care Start Date 10/03/19 Plan of Care End Date 11/16/19 Therapeutic Interventions Therapeutic Interventions Aquatic Therapy,Gait Training, Home Exercise Program,Joint Mobilizations,Manual Therapy, Neuromuscular Re-education, Self-Care/Home Management,Soft Tissue Mobilization, Therapeutic Activities, Therapeutic Exercises Modalities Cold Pack/Ice Massage,Electric Stimulation,Hot Packs Next Visit Focus/Plan Next Note Type Treatment Note Next Visit Plan Consider teaching rolling pin self-massage and start scar massage soon.
--- NOTE | 2019-09-19 10:29 | PT.OTN ---
Current Diagnoses Unilateral primary osteoarthritis, right knee (09/19/19) Pain in right knee (09/19/19) Other abnormalities of gait and mobility (09/19/19) Arthrodesis status (09/19/19) Physical Therapy Treatment Note PT-OP-A Visit Information Start: 08/24/19 07:20 Freq: Status: Active Protocol: Document 09/19/19 09:00 AMB (Rec: 09/19/19 09:47 AMB [id number]) Out-Patient Physical Therapy Visit Information Visit Information Visit Type Treatment Note Visit Start Time 09:02 Visit Stop Time 09:45 Total Visit Minutes 43 Visit Number 7 Number of FRUIT PEELER Visits 0 PT-OP-B Current Condition Start: 08/24/19 07:20 Freq: Status: Active Protocol: Document 08/24/19 09:00 AMB (Rec: 08/24/19 14:19 AMB [email or web address]) Current Condition History of Current Condition Onset Date 08/18/19 Current Complaints pain/weakness s/p R PKA History of Current Condition Juliano reports he had a partial knee replacement a week ago after years of right knee pain from an accident in high school that resulted in meniscectomy. He was a runner but reports significant difficulty engaging his quads even before surgery (reports doing 100# knee extension with the left and only 5# with the right prior to surgery). 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 He lives with his in a home with stairs but he lives on the main level and is not currently using the stairs. Prior Functional Status Baseline Function- ADL's Independent Baseline Function- Mobility Independent Baseline Function- Recreation/Hobbies Pain with running, weakness in quads Current Functional Impairments (Reported) Functional Limitations- Mobility/Gait Difficulty walking, stairs, unable to work due to needing to be on a boat/ getting up and down ladder. Personal Factors Other Personal Factors That May Effect Pt reports pain/anxiety with Therapy/Recovery moving knee. Longstanding history of weakness/pain in R knee. PT-OP-C Subjective Start: 08/24/19 07:20 Freq: Status: Active Protocol: Document 09/19/19 09:00 AMB (Rec: 09/19/19 09:47 AMB [id number]) OP-PT Subjective Patient Comments Patient Comments Pt is taking advil to sleep this week. PT-OP-G Mobility & Gait Start: 08/24/19 07:20 Freq: Status: Active Protocol: Document 08/24/19 09:00 AMB (Rec: 08/24/19 14:29 AMB [email or web address]) OP Gait Assessment Comments Gait Comments Juliano attends PT without SPC and significant antalgic gait. He states he has a walker and a cane at home but doesn't like them. Stiff knee throughout gait- lacks knee flexion in swing and terminal knee extension. PT-OP-J Posture/Palpation/Skin Start: 08/24/19 07:20 Freq: Status: Active Protocol: Document 08/24/19 09:00 AMB (Rec: 08/24/19 14:29 AMB [email or web address]) Skin Assessment Other Assessments Skin Assessment Comments Incision covered by gauze and tape- pt and state steri strips are intact. Bruising ( light green) present down lateral calf and at popliteal fossa. No redness, no pitting edema, but post-operative swelling present. PT-OP-K Range of Motion Start: 08/24/19 07:20 Freq: Status: Active Protocol: Document 09/07/19 08:23 AMB (Rec: 09/07/19 08:23 AMB [id number]) Knee Goniometric Range of Motion Knee Right Flexion Active (degrees) 93 Extension Active (degrees) 10 PT-OP-M Strength Start: 08/24/19 07:20 Freq: Status: Active Protocol: Document 08/24/19 09:00 AMB (Rec: 08/24/19 16:03 AMB [email or web address]) Knee Strength Knee Manual Muscle Testing Right Flexion (S2) 4 Good Extension (L3) 2 Poor Left Flexion (S2) 5 Normal Extension (L3) 5 Normal PT-OP-Q Treatments Start: 08/24/19 07:20 Freq: Status: Active Protocol: Document 09/19/19 09:00 AMB (Rec: 09/19/19 10:27 AMB [email or web address]) Cardio Equipment Bicycle (Upright) Duration (Minutes) 6 Resistance 6 Seat Position 4 Gym Equipment Shuttle Recovery Unilateral Squats Resistance 75# Reps/Time 2x15 Therapeutic Exercises Supine Exercises Brad stretch Reps/Minutes 30x4 Standing Exercises 3 Standing Exercise Name wall squat Reps/Minutes 10x5 Comments with left leg out more to get right leg more engaged 2 Standing Exercise Name calf stretch on RAYNA 1 Standing Exercise Name knee extension Resistance #4 tband Reps/Minutes 2x10 Other Exercises 1 Other Exercise Name sulma pose Reps/Minutes 30x2 Comments to work into kneeling Manual Therapy Treatment Soft Tissue Mobilization 1 Body Location scar tissue Mobilization Type Cross-Friction Intensity/Depth Moderate Body Position Supine Joint Mobilizations 1 Joint AP and PA tibiofemoral Grade III Body Position Hooklying PT-OP-R Modalities Start: 08/24/19 07:20 Freq: Status: Active Protocol: Document 09/07/19 08:15 AMB (Rec: 09/10/19 11:54 AMB [email or web address]) Hot Pack/Cold Pack Treatment Cold Pack Location R knee Patient Position Hooklying Treatment Duration (minutes) 10 Patient Tolerance Good Comments cryocuff PT-OP-T Assessment and Plan Start: 08/24/19 07:20 Freq: Status: Active Protocol: Document 09/19/19 09:00 AMB (Rec: 09/19/19 09:47 AMB [id number]) Physical Therapy Assessment Assessment Summary Assessment Pt tolerated scar massage well. Kneeling is still uncomfortable. Encourged pt to continue with biking, and continue working on his ROM. Physical Therapy Plan Next Visit Focus/Plan Next Note Type Treatment Note Next Visit Plan Continue to emphasize getting full range, quad strengthening .
--- NOTE | 2019-09-26 12:02 | PT.OTN ---
Current Diagnoses Unilateral primary osteoarthritis, right knee (09/26/19) Pain in right knee (09/26/19) Other abnormalities of gait and mobility (09/26/19) Arthrodesis status (09/26/19) Physical Therapy Treatment Note PT-OP-A Visit Information Start: 08/24/19 07:20 Freq: Status: Active Protocol: Document 09/26/19 09:00 AMB (Rec: 09/26/19 09:53 AMB [id number]) Out-Patient Physical Therapy Visit Information Visit Information Visit Type Treatment Note Visit Start Time 09:05 Visit Stop Time 09:45 Total Visit Minutes 40 Visit Number 8 Number of FISH DRIER Visits 0 PT-OP-B Current Condition Start: 08/24/19 07:20 Freq: Status: Active Protocol: Document 08/24/19 09:00 AMB (Rec: 08/24/19 14:19 AMB [email or web address]) Current Condition History of Current Condition Onset Date 08/18/19 Current Complaints pain/weakness s/p R PKA History of Current Condition Juliano reports he had a partial knee replacement a week ago after years of right knee pain from an accident in high school that resulted in meniscectomy. He was a runner but reports significant difficulty engaging his quads even before surgery (reports doing 100# knee extension with the left and only 5# with the right prior to surgery). 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 He lives with his in a home with stairs but he lives on the main level and is not currently using the stairs. Prior Functional Status Baseline Function- ADL's Independent Baseline Function- Mobility Independent Baseline Function- Recreation/Hobbies Pain with running, weakness in quads Current Functional Impairments (Reported) Functional Limitations- Mobility/Gait Difficulty walking, stairs, unable to work due to needing to be on a boat/ getting up and down ladder. Personal Factors Other Personal Factors That May Effect Pt reports pain/anxiety with Therapy/Recovery moving knee. Longstanding history of weakness/pain in R knee. PT-OP-C Subjective Start: 08/24/19 07:20 Freq: Status: Active Protocol: Document 09/26/19 09:00 AMB (Rec: 09/26/19 09:53 AMB [id number]) OP-PT Subjective Patient Comments Patient Comments Pt taking advil sometimes due to pain from working on the boat. PT-OP-G Mobility & Gait Start: 08/24/19 07:20 Freq: Status: Active Protocol: Document 08/24/19 09:00 AMB (Rec: 08/24/19 14:29 AMB [email or web address]) OP Gait Assessment Comments Gait Comments Juliano attends PT without SPC and significant antalgic gait. He states he has a walker and a cane at home but doesn't like them. Stiff knee throughout gait- lacks knee flexion in swing and terminal knee extension. PT-OP-J Posture/Palpation/Skin Start: 08/24/19 07:20 Freq: Status: Active Protocol: Document 08/24/19 09:00 AMB (Rec: 08/24/19 14:29 AMB [email or web address]) Skin Assessment Other Assessments Skin Assessment Comments Incision covered by gauze and tape- pt and state steri strips are intact. Bruising ( light green) present down lateral calf and at popliteal fossa. No redness, no pitting edema, but post-operative swelling present. PT-OP-K Range of Motion Start: 08/24/19 07:20 Freq: Status: Active Protocol: Document 09/07/19 08:23 AMB (Rec: 09/07/19 08:23 AMB [id number]) Knee Goniometric Range of Motion Knee Right Flexion Active (degrees) 93 Extension Active (degrees) 10 PT-OP-M Strength Start: 08/24/19 07:20 Freq: Status: Active Protocol: Document 08/24/19 09:00 AMB (Rec: 08/24/19 16:03 AMB [email or web address]) Knee Strength Knee Manual Muscle Testing Right Flexion (S2) 4 Good Extension (L3) 2 Poor Left Flexion (S2) 5 Normal Extension (L3) 5 Normal PT-OP-Q Treatments Start: 08/24/19 07:20 Freq: Status: Active Protocol: Document 09/26/19 09:00 AMB (Rec: 09/26/19 09:53 AMB [id number]) Cardio Equipment Bicycle (Upright) Duration (Minutes) 6 Resistance 6 Seat Position 4 Gym Equipment Cable Column (Body Solid) Leg Extension Details single leg Resistance 10 Reps/Time 1x12 Shuttle Recovery Unilateral Squats Resistance 75# Reps/Time 2x15 Therapeutic Exercises Standing Exercises 3 Standing Exercise Name wall squat Reps/Minutes 10x5 Comments with left leg out more to get right leg more engaged 2 Standing Exercise Name calf stretch on RAYNA Manual Therapy Treatment Soft Tissue Mobilization 1 Body Location scar tissue Mobilization Type Cross-Friction Intensity/Depth Moderate Body Position Supine Joint Mobilizations 1 Joint AP and PA tibiofemoral Grade III Body Position Hooklying PT-OP-R Modalities Start: 08/24/19 07:20 Freq: Status: Active Protocol: Document 09/07/19 08:15 AMB (Rec: 09/10/19 11:54 AMB [email or web address]) Hot Pack/Cold Pack Treatment Cold Pack Location R knee Patient Position Hooklying Treatment Duration (minutes) 10 Patient Tolerance Good Comments cryocuff PT-OP-T Assessment and Plan Start: 08/24/19 07:20 Freq: Status: Active Protocol: Document 09/26/19 12:00 AMB (Rec: 09/26/19 12:02 AMB [email or web address]) Physical Therapy Assessment Assessment Summary Assessment Discussed return to normal walking with Juliano, he continues to show decreased trunk rotation and increased lateral lean- may need to check hip abduction strength. Encouraged in good heel strike and push off. Discussed that Juliano needs to improve his ROM, be able to perform a single leg squat, and tolerate light plyometrics before he returns to running. Physical Therapy Plan Next Visit Focus/Plan Next Note Type Treatment Note Next Visit Plan Continue to emphasize getting full range, quad strengthening .
--- NOTE | 2019-10-03 13:15 | PT.OTN ---
Current Diagnoses Unilateral primary osteoarthritis, right knee (10/03/19) Pain in right knee (10/03/19) Other abnormalities of gait and mobility (10/03/19) Arthrodesis status (10/03/19) Physical Therapy Treatment Note PT-OP-A Visit Information Start: 08/24/19 07:20 Freq: Status: Active Protocol: Document 10/03/19 09:00 AMB (Rec: 10/03/19 09:09 AMB [id number]) Out-Patient Physical Therapy Visit Information Visit Information Visit Type Treatment Note Visit Start Time 09:00 Visit Stop Time 09:45 Total Visit Minutes 40 Visit Number 9 PT-OP-B Current Condition Start: 08/24/19 07:20 Freq: Status: Active Protocol: Document 08/24/19 09:00 AMB (Rec: 08/24/19 14:19 AMB [email or web address]) Current Condition History of Current Condition Onset Date 08/18/19 Current Complaints pain/weakness s/p R PKA History of Current Condition Juliano reports he had a partial knee replacement a week ago after years of right knee pain from an accident in high school that resulted in meniscectomy. He was a runner but reports significant difficulty engaging his quads even before surgery (reports doing 100# knee extension with the left and only 5# with the right prior to surgery). 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 He lives with his in a home with stairs but he lives on the main level and is not currently using the stairs. Prior Functional Status Baseline Function- ADL's Independent Baseline Function- Mobility Independent Baseline Function- Recreation/Hobbies Pain with running, weakness in quads Current Functional Impairments (Reported) Functional Limitations- Mobility/Gait Difficulty walking, stairs, unable to work due to needing to be on a boat/ getting up and down ladder. Personal Factors Other Personal Factors That May Effect Pt reports pain/anxiety with Therapy/Recovery moving knee. Longstanding history of weakness/pain in R knee. PT-OP-C Subjective Start: 08/24/19 07:20 Freq: Status: Active Protocol: Document 10/03/19 09:00 AMB (Rec: 10/03/19 09:09 AMB [id number]) OP-PT Subjective Patient Comments Patient Comments Pt went to the gym yesterday and did well, but is still noticing end range flexion difficulties. PT-OP-G Mobility & Gait Start: 08/24/19 07:20 Freq: Status: Active Protocol: Document 08/24/19 09:00 AMB (Rec: 08/24/19 14:29 AMB [email or web address]) OP Gait Assessment Comments Gait Comments Juliano attends PT without SPC and significant antalgic gait. He states he has a walker and a cane at home but doesn't like them. Stiff knee throughout gait- lacks knee flexion in swing and terminal knee extension. PT-OP-J Posture/Palpation/Skin Start: 08/24/19 07:20 Freq: Status: Active Protocol: Document 08/24/19 09:00 AMB (Rec: 08/24/19 14:29 AMB [email or web address]) Skin Assessment Other Assessments Skin Assessment Comments Incision covered by gauze and tape- pt and state steri strips are intact. Bruising ( light green) present down lateral calf and at popliteal fossa. No redness, no pitting edema, but post-operative swelling present. PT-OP-K Range of Motion Start: 08/24/19 07:20 Freq: Status: Active Protocol: Document 09/07/19 08:23 AMB (Rec: 09/07/19 08:23 AMB [id number]) Knee Goniometric Range of Motion Knee Right Flexion Active (degrees) 93 Extension Active (degrees) 10 PT-OP-M Strength Start: 08/24/19 07:20 Freq: Status: Active Protocol: Document 08/24/19 09:00 AMB (Rec: 08/24/19 16:03 AMB [email or web address]) Knee Strength Knee Manual Muscle Testing Right Flexion (S2) 4 Good Extension (L3) 2 Poor Left Flexion (S2) 5 Normal Extension (L3) 5 Normal PT-OP-Q Treatments Start: 08/24/19 07:20 Freq: Status: Active Protocol: Document 10/03/19 13:04 AMB (Rec: 10/03/19 13:15 AMB [email or web address]) Cardio Equipment Elliptical Duration (Minutes) 6 Resistance 10 Therapeutic Exercises Standing Exercises 4 Standing Exercise Name mini single leg squat Reps/Minutes x5 Comments with vc for form 3 Standing Exercise Name wall squat Reps/Minutes 10x5 Comments single leg- challenging 2 Standing Exercise Name calf stretch on RAYNA Reps/Minutes 30x4 1 Standing Exercise Name kip stacy Comments x10 Manual Therapy Treatment Joint Mobilizations 1 Joint AP and PA tibiofemoral Grade III Body Position Hooklying PT-OP-R Modalities Start: 08/24/19 07:20 Freq: Status: Active Protocol: Document 09/07/19 08:15 AMB (Rec: 09/10/19 11:54 AMB [email or web address]) Hot Pack/Cold Pack Treatment Cold Pack Location R knee Patient Position Hooklying Treatment Duration (minutes) 10 Patient Tolerance Good Comments cryocuff PT-OP-T Assessment and Plan Start: 08/24/19 07:20 Freq: Status: Active Protocol: Document 10/03/19 13:04 AMB (Rec: 10/03/19 13:15 AMB [email or web address]) Physical Therapy Assessment Assessment Summary Assessment Juliano's gait remains a large issue for him- after just a little bit of time he has difficulty bending his knee and feels that he has to stiff knee his walking. Physical Therapy Plan Next Visit Focus/Plan Next Note Type Treatment Note Next Visit Plan Continue to emphasize getting full range, quad strengthening .
--- NOTE | 2019-10-10 15:46 | PT.OTN ---
Current Diagnoses Unilateral primary osteoarthritis, right knee (10/10/19) Pain in right knee (10/10/19) Other abnormalities of gait and mobility (10/10/19) Arthrodesis status (10/10/19) Physical Therapy Treatment Note PT-OP-A Visit Information Start: 08/24/19 07:20 Freq: Status: Active Protocol: Document 10/10/19 09:00 AMB (Rec: 10/10/19 15:46 AMB [email or web address]) Out-Patient Physical Therapy Visit Information Visit Information Visit Type Treatment Note Visit Start Time 09:00 Visit Stop Time 09:45 Total Visit Minutes 45 Visit Number 10 PT-OP-B Current Condition Start: 08/24/19 07:20 Freq: Status: Active Protocol: Document 08/24/19 09:00 AMB (Rec: 08/24/19 14:19 AMB [email or web address]) Current Condition History of Current Condition Onset Date 08/18/19 Current Complaints pain/weakness s/p R PKA History of Current Condition Juliano reports he had a partial knee replacement a week ago after years of right knee pain from an accident in high school that resulted in meniscectomy. He was a runner but reports significant difficulty engaging his quads even before surgery (reports doing 100# knee extension with the left and only 5# with the right prior to surgery). 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 He lives with his in a home with stairs but he lives on the main level and is not currently using the stairs. Prior Functional Status Baseline Function- ADL's Independent Baseline Function- Mobility Independent Baseline Function- Recreation/Hobbies Pain with running, weakness in quads Current Functional Impairments (Reported) Functional Limitations- Mobility/Gait Difficulty walking, stairs, unable to work due to needing to be on a boat/ getting up and down ladder. Personal Factors Other Personal Factors That May Effect Pt reports pain/anxiety with Therapy/Recovery moving knee. Longstanding history of weakness/pain in R knee. PT-OP-C Subjective Start: 08/24/19 07:20 Freq: Status: Active Protocol: Document 10/10/19 09:00 AMB (Rec: 10/10/19 15:46 AMB [email or web address]) OP-PT Subjective Patient Comments Patient Comments Pt reports he has been busy on the boat, so he has not been able to make it to the gym or do his exercises every day, but he is going at least 3x/ week. PT-OP-G Mobility & Gait Start: 08/24/19 07:20 Freq: Status: Active Protocol: Document 08/24/19 09:00 AMB (Rec: 08/24/19 14:29 AMB [email or web address]) OP Gait Assessment Comments Gait Comments Juliano attends PT without SPC and significant antalgic gait. He states he has a walker and a cane at home but doesn't like them. Stiff knee throughout gait- lacks knee flexion in swing and terminal knee extension. PT-OP-J Posture/Palpation/Skin Start: 08/24/19 07:20 Freq: Status: Active Protocol: Document 08/24/19 09:00 AMB (Rec: 08/24/19 14:29 AMB [email or web address]) Skin Assessment Other Assessments Skin Assessment Comments Incision covered by gauze and tape- pt and state steri strips are intact. Bruising ( light green) present down lateral calf and at popliteal fossa. No redness, no pitting edema, but post-operative swelling present. PT-OP-K Range of Motion Start: 08/24/19 07:20 Freq: Status: Active Protocol: Document 10/10/19 09:13 AMB (Rec: 10/10/19 09:13 AMB [id number]) Knee Goniometric Range of Motion Knee Right Flexion Active (degrees) 116 Extension Active (degrees) 6 PT-OP-M Strength Start: 08/24/19 07:20 Freq: Status: Active Protocol: Document 08/24/19 09:00 AMB (Rec: 08/24/19 16:03 AMB [email or web address]) Knee Strength Knee Manual Muscle Testing Right Flexion (S2) 4 Good Extension (L3) 2 Poor Left Flexion (S2) 5 Normal Extension (L3) 5 Normal PT-OP-Q Treatments Start: 08/24/19 07:20 Freq: Status: Active Protocol: Document 10/10/19 09:00 AMB (Rec: 10/10/19 15:46 AMB [email or web address]) Gym Equipment Shuttle Recovery Other- 1 Details plyos Resistance 25 then 50# Reps/Time 10x2 Therapeutic Exercises Supine Exercises 3 Supine Exercise Name hamstring stretch added IT band stretch Reps/Minutes 30x2 ea Comments with band Standing Exercises 5 Standing Exercise Name skipping Reps/Minutes 10'x5 4 Standing Exercise Name mini single leg squat Reps/Minutes x10 Comments with vc for form 3 Standing Exercise Name wall squat Reps/Minutes 10x5 Comments single leg- challenging 2 Standing Exercise Name calf stretch on RAYNA Reps/Minutes 30x4 1 Standing Exercise Name star lunge Comments x10 PT-OP-R Modalities Start: 08/24/19 07:20 Freq: Status: Active Protocol: Document 09/07/19 08:15 AMB (Rec: 09/10/19 11:54 AMB [email or web address]) Hot Pack/Cold Pack Treatment Cold Pack Location R knee Patient Position Hooklying Treatment Duration (minutes) 10 Patient Tolerance Good Comments cryocuff PT-OP-T Assessment and Plan Start: 08/24/19 07:20 Freq: Status: Active Protocol: Document 10/10/19 09:00 AMB (Rec: 10/10/19 15:46 AMB [email or web address]) Physical Therapy Assessment Assessment Summary Assessment Juliano's gait was better today, but continue to exhibit lateral trunk lean instead of rotation, better more natural with skipping, no pain with 25 # single leg shuttle hop, but 50# started to have popping. Physical Therapy Plan Next Visit Focus/Plan Next Note Type Treatment Note Next Visit Plan Continue to emphasize getting full range, quad strengthening .
--- NOTE | 2019-10-17 10:31 | PT.OTN ---
Current Diagnoses Unilateral primary osteoarthritis, right knee (10/17/19) Pain in right knee (10/17/19) Other abnormalities of gait and mobility (10/17/19) Arthrodesis status (10/17/19) Physical Therapy Treatment Note PT-OP-A Visit Information Start: 08/24/19 07:20 Freq: Status: Active Protocol: Document 10/17/19 09:00 AMB (Rec: 10/17/19 10:30 AMB [email or web address]) Out-Patient Physical Therapy Visit Information Visit Information Visit Type Treatment Note Visit Start Time 09:00 Visit Stop Time 09:45 Total Visit Minutes 45 Visit Number 11 PT-OP-B Current Condition Start: 08/24/19 07:20 Freq: Status: Active Protocol: Document 08/24/19 09:00 AMB (Rec: 08/24/19 14:19 AMB [email or web address]) Current Condition History of Current Condition Onset Date 08/18/19 Current Complaints pain/weakness s/p R PKA History of Current Condition Juliano reports he had a partial knee replacement a week ago after years of right knee pain from an accident in high school that resulted in meniscectomy. He was a runner but reports significant difficulty engaging his quads even before surgery (reports doing 100# knee extension with the left and only 5# with the right prior to surgery). 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 He lives with his in a home with stairs but he lives on the main level and is not currently using the stairs. Prior Functional Status Baseline Function- ADL's Independent Baseline Function- Mobility Independent Baseline Function- Recreation/Hobbies Pain with running, weakness in quads Current Functional Impairments (Reported) Functional Limitations- Mobility/Gait Difficulty walking, stairs, unable to work due to needing to be on a boat/ getting up and down ladder. Personal Factors Other Personal Factors That May Effect Pt reports pain/anxiety with Therapy/Recovery moving knee. Longstanding history of weakness/pain in R knee. PT-OP-C Subjective Start: 08/24/19 07:20 Freq: Status: Active Protocol: Document 10/17/19 09:00 AMB (Rec: 10/17/19 10:30 AMB [email or web address]) OP-PT Subjective Patient Comments Patient Comments Pt reports he was able to go on a hilly bike ride without having to get off and walk the bike. He feels his strength is improving, but has not been icing and has been noticing some swelling. PT-OP-G Mobility & Gait Start: 08/24/19 07:20 Freq: Status: Active Protocol: Document 08/24/19 09:00 AMB (Rec: 08/24/19 14:29 AMB [email or web address]) OP Gait Assessment Comments Gait Comments Juliano attends PT without SPC and significant antalgic gait. He states he has a walker and a cane at home but doesn't like them. Stiff knee throughout gait- lacks knee flexion in swing and terminal knee extension. PT-OP-J Posture/Palpation/Skin Start: 08/24/19 07:20 Freq: Status: Active Protocol: Document 08/24/19 09:00 AMB (Rec: 08/24/19 14:29 AMB [email or web address]) Skin Assessment Other Assessments Skin Assessment Comments Incision covered by gauze and tape- pt and state steri strips are intact. Bruising ( light green) present down lateral calf and at popliteal fossa. No redness, no pitting edema, but post-operative swelling present. PT-OP-K Range of Motion Start: 08/24/19 07:20 Freq: Status: Active Protocol: Document 10/10/19 09:13 AMB (Rec: 10/10/19 09:13 AMB [id number]) Knee Goniometric Range of Motion Knee Right Flexion Active (degrees) 116 Extension Active (degrees) 6 PT-OP-M Strength Start: 08/24/19 07:20 Freq: Status: Active Protocol: Document 08/24/19 09:00 AMB (Rec: 08/24/19 16:03 AMB [email or web address]) Knee Strength Knee Manual Muscle Testing Right Flexion (S2) 4 Good Extension (L3) 2 Poor Left Flexion (S2) 5 Normal Extension (L3) 5 Normal PT-OP-Q Treatments Start: 08/24/19 07:20 Freq: Status: Active Protocol: Document 10/17/19 09:00 AMB (Rec: 10/17/19 10:30 AMB [email or web address]) Gym Equipment Shuttle Recovery Other- 1 Details plyos Resistance 50# Reps/Time 10x2 Therapeutic Exercises Supine Exercises 3 Supine Exercise Name hamstring stretch added IT band stretch Reps/Minutes 30x2 ea Comments with band Standing Exercises 7 Standing Exercise Name single leg BOSU squat with UE support Reps/Minutes 10 6 Standing Exercise Name lateral step up Reps/Minutes 2x10 Comments 6 3 Standing Exercise Name wall squat Reps/Minutes 10x5 Comments single leg- challenging 2 Standing Exercise Name calf stretch on RAYNA Reps/Minutes 30x4 1 Standing Exercise Name star lunge Comments x10 Manual Therapy Treatment Joint Mobilizations 1 Joint AP and PA tibiofemoral Grade III Body Position Hooklying PT-OP-R Modalities Start: 08/24/19 07:20 Freq: Status: Active Protocol: Document 09/07/19 08:15 AMB (Rec: 09/10/19 11:54 AMB [email or web address]) Hot Pack/Cold Pack Treatment Cold Pack Location R knee Patient Position Hooklying Treatment Duration (minutes) 10 Patient Tolerance Good Comments cryocuff PT-OP-T Assessment and Plan Start: 08/24/19 07:20 Freq: Status: Active Protocol: Document 10/17/19 09:00 AMB (Rec: 10/17/19 10:30 AMB [email or web address]) Physical Therapy Assessment Assessment Summary Assessment Juliano is continuing to show improvement in strength. End range extension and flexion continues to be stiff. Physical Therapy Plan Next Visit Focus/Plan Next Note Type Treatment Note Next Visit Plan Continue to emphasize getting full range, quad strengthening .
--- NOTE | 2020-01-25 08:40 | PT.OPDS ---
Current Diagnoses Unilateral primary osteoarthritis, right knee (10/17/19) Pain in right knee (10/17/19) Other abnormalities of gait and mobility (10/17/19) Arthrodesis status (10/17/19) Visit Care Team Role Provider Type Jaylen Cary MD Primary Care Provider Physician Specialty: Family Practice Address: [address] [place] [address], [phone] Email: [email or web address] Liza Norton PA-C Attending Provider Non-Staff Specialty: Medical Address: [address] [place] [address], [phone] Email: Visit Number Visit Number 11 Discharge Summary PT-OP-B Current Condition Start: 08/24/19 07:20 Freq: Status: Active Protocol: Document 08/24/19 09:00 AMB (Rec: 08/24/19 14:19 AMB [email or web address]) Current Condition History of Current Condition Onset Date 08/18/19 Current Complaints pain/weakness s/p R PKA History of Current Condition Juliano reports he had a partial knee replacement a week ago after years of right knee pain from an accident in high school that resulted in meniscectomy. He was a runner but reports significant difficulty engaging his quads even before surgery (reports doing 100# knee extension with the left and only 5# with the right prior to surgery). 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 He lives with his in a home with stairs but he lives on the main level and is not currently using the stairs. Prior Functional Status Baseline Function- ADL's Independent Baseline Function- Mobility Independent Baseline Function- Recreation/Hobbies Pain with running, weakness in quads Current Functional Impairments (Reported) Functional Limitations- Mobility/Gait Difficulty walking, stairs, unable to work due to needing to be on a boat/ getting up and down ladder. Personal Factors Other Personal Factors That May Effect Pt reports pain/anxiety with Therapy/Recovery moving knee. Longstanding history of weakness/pain in R knee. PT-OP-C Subjective Start: 08/24/19 07:20 Freq: Status: Active Protocol: Document 10/17/19 09:00 AMB (Rec: 10/17/19 10:30 AMB [email or web address]) OP-PT Subjective Patient Comments Patient Comments Pt reports he was able to go on a hilly bike ride without having to get off and walk the bike. He feels his strength is improving, but has not been icing and has been noticing some swelling. PT-OP-G Mobility & Gait Start: 08/24/19 07:20 Freq: Status: Active Protocol: Document 08/24/19 09:00 AMB (Rec: 08/24/19 14:29 AMB [email or web address]) OP Gait Assessment Comments Gait Comments Juliano attends PT without SPC and significant antalgic gait. He states he has a walker and a cane at home but doesn't like them. Stiff knee throughout gait- lacks knee flexion in swing and terminal knee extension. PT-OP-J Posture/Palpation/Skin Start: 08/24/19 07:20 Freq: Status: Active Protocol: Document 08/24/19 09:00 AMB (Rec: 08/24/19 14:29 AMB [email or web address]) Skin Assessment Other Assessments Skin Assessment Comments Incision covered by gauze and tape- pt and state steri strips are intact. Bruising ( light green) present down lateral calf and at popliteal fossa. No redness, no pitting edema, but post-operative swelling present. PT-OP-K Range of Motion Start: 08/24/19 07:20 Freq: Status: Active Protocol: Document 10/10/19 09:13 AMB (Rec: 10/10/19 09:13 AMB [id number]) Knee Goniometric Range of Motion Knee Right Flexion Active (degrees) 116 Extension Active (degrees) 6 PT-OP-M Strength Start: 08/24/19 07:20 Freq: Status: Active Protocol: Document 08/24/19 09:00 AMB (Rec: 08/24/19 16:03 AMB [email or web address]) Knee Strength Knee Manual Muscle Testing Right Flexion (S2) 4 Good Extension (L3) 2 Poor Left Flexion (S2) 5 Normal Extension (L3) 5 Normal PT-OP-T Assessment and Plan Start: 08/24/19 07:20 Freq: Status: Active Protocol: Document 01/25/20 08:33 AMB (Rec: 03/05/20 08:39 [facility] [id number]) Physical Therapy Assessment Goals Three Impairment ROM Short Term Goal (STG) Juliano will improve his R knee PROM to 4-100. STG Duration missing 6 extension; 116 flexion when last measured Talent Coordinator Goal (LTG) Juliano will improve his R knee AROM to 0-120. LTG Duration NOT MET Two Impairment strength Short Term Goal (STG) Juliano will activate his quad so that he can perform a straight leg raise without quad lag. STG Duration MET Assisted Goal (LTG) Juliano will improve his strength so that he can perform a full squat with equal weightbearing without increasing his baseline pain. LTG Duration MET One Impairment gait Short Term Goal (STG) Juliano will improve his gait so that he can walk without AD for 5 minutes over smooth surfaces without antalgic gait . STG Duration Intermittently met- when warmed up better Talent Coordinator Goal (LTG) Juliano will ascend and descend a flight of stairs without a railing and with an alternating gait pattern. LTG Duration MET Assessment Summary Assessment At his last visit in September, Juliano's strength and function was good. However he continued to lack end range extension, and when stiff this did affect his gait. He canceled his last remaining appointment due to a vacation and then did not reschedule due to needing to go back to work. Therefore he is now discharged. Physical Therapy Plan Discharge Physical Therapy Discharge Reasons No Longer Attending PT
== END 2020-01-26 08:22 ==
LOC: PHYS 09:00
PROVIDERS: PCP Family Medicine; Visit Provider Physician Assistant
DX: M17.11 Unilateral primary osteoarthritis, right knee (principal); R26.89 Other abnormalities of gait and mobility; M25.561 Pain in right knee; Z98.1 Arthrodesis status
CPT/HCPCS: 97010; 97110; 97140; 97161

== ENCOUNTER 2020-10-04 16:24 | Emergency (ER) | payer OTHER, SELFPAY ==
[2020-10-04 16:45] VITALS: BP 142/86; PULSE 62; RESP 18; TEMP 36.4; O2SAT 96; BMI 26.6
== END 2020-10-04 17:46 | disposition left against medical advice (07) ==
PROVIDERS: Emergency Provider Emergency Medicine; PCP Family Medicine
CPT/HCPCS: 99281

== ENCOUNTER → 2021-09-26 09:38 | Outpatient (CLI) | payer OTHER, SELFPAY ==
[2021-09-26 12:01] LABS: COVID19 -Nasal RAPID Negative (Negative)
== END ==
PROVIDERS: PCP Family Medicine; Visit Provider Surgery
DX: Z20.822 Contact with and (suspected) exposure to COVID-19 (principal); Z01.812 Encounter for preprocedural laboratory examination
CPT/HCPCS: 87635

== ENCOUNTER → 2021-09-26 09:39 | Outpatient (CLI) | payer OTHER, SELFPAY ==
[2021-09-26 10:34] LABS: Add Manual Diff / Slide Review NO; Basophils Absolute Auto 0 /uL (0-100); Basophils Percent Auto 0.4 % (0-2); Eosinophils Absolute Auto 100 /uL (0-450); Eosinophils Percent Auto 1.7 % (2-4); Hematocrit 47.1 % (41-53); Hemoglobin 15.6 g/dL (13.5-17.5); Lymphocytes Absolute Auto 2100 /uL (1100-4500); Lymphocytes Percent Auto 36.6 % (25-40); Mean Corpuscular HGB Conc 33.1 % (30-36); Mean Corpuscular Hemoglobin 30.4 PG (26-34); Mean Corpuscular Volume 91.8 fL (80-100); Monocytes Absolute Auto 400 /uL (0-900); Monocytes Percent Auto 7.8 % (3-14); Neutrophils Absolute Auto 3000 /uL (1500-7000); Neutrophils Percent Auto 53.5 % (50-75); Platelet Count 212 X10^3/uL (150-400); Red Blood Cell Count 5.13 X10^6/uL (4.5-5.9); Red Cell Distribution Width 14.1 % (11.6-14.8); White Blood Cell Count 5.6 X10^3/uL (4.5-11.0)
[2021-09-26 10:37] LABS: Alanine Aminotransferase 38 IU/L (<50); Albumin 4.5 g/dL (3.5-5.0); Albumin Globulin Ratio 1.9 (1.0-2.8); Alkaline Phosphatase 55 U/L (38-126); Aspartate Aminotransferase 36 IU/L (17-59); BUN Creatinine Ratio 20.4 (6-22); Bilirubin Total 0.8 mg/dL (0.2-1.3); Blood Urea Nitrogen 19 mg/dL (9-20); Calcium 9.6 mg/dL (8.4-10.2); Carbon Dioxide 24 mmol/L (22-32); Chloride 108 mmol/L (98-107); Cholesterol 194 mg/dL (140-199); Estimated Glomerular Filt Rate > 60.0 mL/min (>60); Globulin 2.4 g/dL (1.7-4.1); Glucose 106 mg/dL (80-110); HDL Cholesterol 75 mg/dL (40-60); HEMOLYSIS < 15 (0-50); LDL Cholesterol Calculated 95 mg/dL (<100); Potassium 3.9 mmol/L (3.4-5.1); Sodium 140 mmol/L (137-145); Total Protein 6.9 g/dL (6.3-8.2); Triglycerides 118 mg/dL (35-150)
[2021-09-26 11:07] LABS: TSH w/ Reflex to FT4 2.86 uIU/mL (0.47-4.68)
[2021-09-26 11:08] LABS: Prostate Specific Antigen Scrn 0.507 ng/mL (0.1-4.0)
== END ==
PROVIDERS: PCP Family Medicine; Referring Provider Family Medicine; Visit Provider Family Medicine
DX: E66.3 Overweight (principal); Z68.29 Body mass index [BMI] 29.0-29.9, adult; Z12.5 Encounter for screening for malignant neoplasm of prostate; Z20.822 Contact with and (suspected) exposure to COVID-19; Z01.812 Encounter for preprocedural laboratory examination
CPT/HCPCS: 36415; 80053; 80061; 84443; 85025; 87635; C9803; G0103

== ENCOUNTER 2021-09-29 06:46 | Day surgery (SDC) | payer OTHER, SELFPAY ==
[2021-09-29 07:02] VITALS: BP 139/87; PULSE 58; RESP 16; TEMP 36.5; O2SAT 98; BMI 26.6
[2021-09-29] MEDS: LACTATED RINGERS 1,000 ML 42 ML IV (07:23)
--- NOTE | 2021-09-29 07:43 | PM.HP.1 ---
History of Present Illness History of Present Illness Date Patient Seen: 09/29/21 Time Patient Seen: 07:43 Chief complaint: SCREENING COLONOSCOPY Narrative: The patient presents for colorectal sreening. They have never had any previous examination for such. No personal or family history of colon cancer. On further history denies any recent gastrointestinal symptoms. No nausea, vomiting, abdominal pain, loss of appetite, unexplained weight loss, change in bowel habits, diarrhea, constipation, melena, hematochezia, or bright red blood per rectum. Patient History Medical History BMI 29.0-29.9,adult Colon cancer screening Marijuana smoker Overweight Surgical History Status post knee surgery Family & Social History Family History Father Heart disease Social History: household members spouse Tobacco & Substance use: Smoking Status Never smoker alcohol intake current alcohol intake frequency 0-2 drinks per day Substance Use Type marijuana Meds Home Medications and Allergies Home Medications Medication Instructions Recorded Confirmed Type ibuprofen 100 mg tablet 200 mg PO QID PRN 09/29/21 09/29/21 History Allergies Allergy/AdvReac Type Severity Reaction Status Date / Time procaine [From Novocain] AdvReac Mild Does not Verified 09/29/21 07:01 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 No apparent distress Cardiovascular- regular rate, no peripheral edema Pulmonary-unlabored respiratory effort, no audible wheezing Abdominal-soft, non-tender, non-distended Musculoskeletal-no cyanosis or clubbing Neurological-nonfocal, normal strength throughout, normal gait. Skin-warm and dry Assessment & Plan Assessment and plan (1) Colon cancer screening: Status: Acute Assessment & Plan narrative: The patient requires colorectal screening and colonoscopy is recommended. Technical details were discussed. Risks, benefits, alternatives explained. Risks including but not limited to myocardial infarction, aspiration, bleeding, pain, missed lesion, incomplete examination, need for further radiographic studies, colonic perforation, and need for major abdominal surgery were discussed. All questions were answered to their satisfaction, and they are in agreement with this plan. Time Spent With Patient Critical Care time: I spent a total of [] minutes of critical care time on this patient's care today; this time is exclusive of procedural time.
[2021-09-29] MEDS: fentaNYL 250 MCG/5 ML INJ IV (07:56)
[2021-09-29] MEDS: MIDAZOLAM 5 MG/5 ML VIAL IV (08:06)
--- NOTE | 2021-09-29 08:21 | PM.OP.COLON ---
Operative Date/Time/Diagnoses Date of procedure: 09/29/21 Time of procedure: 08:21 Pre-op diagnosis: screening colonoscopy Post-op diagnosis: same Procedure & Clinicians Study performed: colonoscopy Same procedure as scheduled: Yes Indications: screening Surgeon: Franklin Boudreaux Procedure Notes Procedure in detail: Medications: Conscious sedation using 8mg IV midazolam and 200mcg IV of fentanyl The history and physical was performed/updated and the patient is ASA class is 2. The procedure was discussed in detail with the patient. Potential risks complications including infection, bleeding, missed diagnosis, perforation, need for surgery, and were explained. Their questions were answered and informed consent was obtained. Patient was brought to the procedure room and placed standard monitoring equipment. The patient's vital signs were monitored continuously throughout the entire procedure. Prior to starting time-out was performed. The patient was placed in the left lateral recumbent position. Procedural sedation was administered. Examination began with a thorough inspection of the perianal area there was no evidence of fissures, fistulae, external hemorrhoids or cutaneous malignancy. The colonoscopy scope was then placed into the anal canal and was advanced to the cecum, which was identified by the ileocecal valve, the appendiceal orifice and the confluence of the taenia. The scope was then slowly withdrawn examining colon thoroughly in all directions, irrigating it of any residual stool. FINDINGS 1. Extensive diverticulosis 2. No masses or polyps The patient tolerated the procedure well. They will be discharged once criteria are met. The prep was of fair quality. The withdrawl time was 8 minutes. The sedation time was 30 minutes. Specimen(s): none sent Complications: none Impression: normal colonoscopy Post-procedure Recommendations: Colonoscopy in 10 years and High fiber diet Disposition: same day surgery
[2021-09-29 08:23] VITALS: BP 132/92; PULSE 62; RESP 12; TEMP 36.4; O2SAT 98
[2021-09-29 08:27] VITALS: BP 129/84; PULSE 54; RESP 18; O2SAT 98
[2021-09-29 08:33] VITALS: BP 123/79; PULSE 57; RESP 15; O2SAT 100
[2021-09-29 08:38] VITALS: BP 120/83; PULSE 56; RESP 14; TEMP 36.3; O2SAT 99
[2021-09-29 08:45] VITALS: BP 122/92; PULSE 56; RESP 16; TEMP 36.4; O2SAT 99
== END 2021-09-29 08:56 | disposition home or self-care (01) ==
PROVIDERS: PCP Family Medicine; Referring Provider Surgery; Visit Provider Surgery
PROC: 0DJD8ZZ Inspection of Lower Intestinal Tract, Via Natural or Artificial Opening Endoscopic (ICD-10-PCS; CPT 45378; principal; 2021-09-29 07:45)
DX: Z12.11 Encounter for screening for malignant neoplasm of colon (principal); E66.9 Obesity, unspecified; Z68.29 Body mass index [BMI] 29.0-29.9, adult; K57.30 Diverticulosis of large intestine without perforation or abscess without bleeding
CPT/HCPCS: 45378; 99152; 99153; J2250; J3010

== ENCOUNTER → 2023-08-27 09:11 | Outpatient (CLI) | payer OTHER, SELFPAY ==
[2023-08-27 10:00] LABS: Add Manual Diff / Slide Review NO; Basophils Absolute Auto 0 /uL (0-100); Basophils Percent Auto 0.3 % (0-2); Eosinophils Absolute Auto 100 /uL (0-450); Hematocrit 44.2 % (41-53); Lymphocytes Absolute Auto 1800 /uL (1100-4500); Lymphocytes Percent Auto 30.7 % (25-40); Mean Corpuscular HGB Conc 33.9 % (30-36); Mean Corpuscular Hemoglobin 30.9 PG (26-34); Monocytes Absolute Auto 500 /uL (0-900); Monocytes Percent Auto 8.1 % (3-14); Neutrophils Absolute Auto 3500 /uL (1500-7000); Neutrophils Percent Auto 59.9 % (50-75); Platelet Count 207 X10^3/uL (150-400); Red Blood Cell Count 4.85 X10^6/uL (4.5-5.9); Red Cell Distribution Width 14.4 % (11.6-14.8); White Blood Cell Count 5.8 X10^3/uL (4.5-11.0)
[2023-08-27 10:13] LABS: HEMOLYSIS < 15 (0-50)
[2023-08-27 10:18] LABS: Alanine Aminotransferase 20 IU/L (<50); Albumin 4.4 g/dL (3.5-5.0); Albumin Globulin Ratio 1.8 (1.0-2.8); Alkaline Phosphatase 81 U/L (38-126); Aspartate Aminotransferase 26 IU/L (17-59); BUN Creatinine Ratio 25.9 (6-22); Bilirubin Total 0.6 mg/dL (0.2-1.3); Blood Urea Nitrogen 21 mg/dL (9-20); Calcium 9.7 mg/dL (8.4-10.2); Carbon Dioxide 26 mmol/L (22-32); Chloride 106 mmol/L (98-107); Estimated Glomerular Filt Rate > 60 mL/min (>60); Globulin 2.4 g/dL (1.7-4.1); Glucose 112 mg/dL (80-110); Potassium 4.2 mmol/L (3.4-5.1); Sodium 138 mmol/L (137-145); Total Protein 6.8 g/dL (6.3-8.2)
[2023-08-27 13:08] LABS: Creatinine Urine Random 132.1 mg/dL
[2023-08-27 13:13] LABS: Microalbumi Creatinin Ratio Ur 4.5 ug/mg CR (<30); Microalbumin Urine Random 0.6 mg/dL (0-1.6)
[2023-08-27 14:31] LABS: Prostate Specific Antigen Scrn 0.526 ng/mL (0.1-4.0)
[2023-08-30 16:54] LABS: HIV 1 & 2 Ab/Ag 4th Gen Combo NEGATIVE (NEGATIVE); Hep C Virus Ab w/Reflex Quant NEGATIVE s/c (NEGATIVE)
== END ==
PROVIDERS: PCP Family Medicine; Referring Provider Family Medicine; Visit Provider Family Medicine
DX: I10 Essential (primary) hypertension (principal); R03.0 Elevated blood-pressure reading, without diagnosis of hypertension; F12.90 Cannabis use, unspecified, uncomplicated; E66.3 Overweight; R07.9 Chest pain, unspecified; Z11.3 Encounter for screening for infections with a predominantly sexual mode of transmission; Z12.5 Encounter for screening for malignant neoplasm of prostate
CPT/HCPCS: 36415; 80053; 82043; 82570; 85025; 86803; 87389; G0103

== ENCOUNTER → 2024-06-29 14:30 | Outpatient (CLI) | payer MEDICARE, OTHER, SELFPAY ==
[2024-06-29 15:25] LABS: Hemoglobin A1C% w Est Avg Glu 5.4 % (4.0-6.0)
[2024-06-29 15:32] LABS: Alanine Aminotransferase 61 IU/L (<50); Albumin 4.5 g/dL (3.5-5.0); Alkaline Phosphatase 60 U/L (38-126); Aspartate Aminotransferase 44 IU/L (17-59); BUN Creatinine Ratio 20.2 (6-22); Bilirubin Total 0.9 mg/dL (0.2-1.3); Blood Urea Nitrogen 21 mg/dL (9-20); Calcium 9.4 mg/dL (8.4-10.2); Carbon Dioxide 23 mmol/L (22-32); Chloride 108 mmol/L (98-107); Cholesterol 172 mg/dL (140-199); Estimated Glomerular Filt Rate > 60 mL/min (>60); Globulin 2.2 g/dL (1.7-4.1); Glucose 129 mg/dL (80-110); HDL Cholesterol 60 mg/dL (40-60); HEMOLYSIS < 15 (0-50); LDL Cholesterol Calculated 89 mg/dL (<100); Potassium 3.9 mmol/L (3.4-5.1); Sodium 139 mmol/L (137-145); Total Protein 6.7 g/dL (6.3-8.2); Triglycerides 113 mg/dL (35-150)
[2024-06-30 04:09] LABS: Apolipoprotein B 79 mg/dL (<90)
== END ==
PROVIDERS: PCP Family Medicine; Referring Provider Family Medicine; Visit Provider Family Medicine
DX: R73.09 Other abnormal glucose (principal); I10 Essential (primary) hypertension; E66.3 Overweight
CPT/HCPCS: 36415; 80053; 80061; 82172; 83036; 84443

== ENCOUNTER → 2024-09-04 12:58 | Outpatient (CLI) | payer MEDICARE, OTHER, SELFPAY ==
[2024-09-04 14:55] LABS: Alanine Aminotransferase 19 IU/L (<50); Albumin 4.1 g/dL (3.5-5.0); Albumin Globulin Ratio 1.6 (1.0-2.8); Alkaline Phosphatase 71 U/L (38-126); Aspartate Aminotransferase 26 IU/L (17-59); BUN Creatinine Ratio 18.7 (6-22); Bilirubin Total 0.8 mg/dL (0.2-1.3); Blood Urea Nitrogen 20 mg/dL (9-20); Calcium 9.5 mg/dL (8.4-10.2); Carbon Dioxide 25 mmol/L (22-32); Chloride 105 mmol/L (98-107); Estimated Glomerular Filt Rate > 60 mL/min (>60); Globulin 2.5 g/dL (1.7-4.1); Glucose 85 mg/dL (80-110); HEMOLYSIS < 15 (0-50); Potassium 4.3 mmol/L (3.4-5.1); Sodium 138 mmol/L (137-145); Total Protein 6.6 g/dL (6.3-8.2)
[2024-09-04 15:00] LABS: Hemoglobin A1C% w Est Avg Glu 5.5 % (4.0-6.0)
== END ==
LOC: LAB 12:59
PROVIDERS: PCP Family Medicine; Referring Provider Family Medicine; Visit Provider Family Medicine
DX: R73.09 Other abnormal glucose (principal); I10 Essential (primary) hypertension
CPT/HCPCS: 36415; 80053; 83036

== ENCOUNTER → 2025-11-09 09:38 | Outpatient (CLI) | payer MEDICARE, OTHER, SELFPAY ==
[2025-11-09 10:31] LABS: Add Manual Diff / Slide Review NO; Hematocrit 45.5 % (41-53); Hemoglobin 15.5 g/dL (13.5-17.5); Lymphocytes Absolute Auto 2200 /uL (1100-4500); Mean Corpuscular HGB Conc 34.1 % (30-36); Mean Corpuscular Hemoglobin 30.8 PG (26-34); Mean Corpuscular Volume 90.2 fL (80-100); Platelet Count 225 X10^3/uL (150-400)
[2025-11-09 10:34] LABS: Hemoglobin A1C% w Est Avg Glu 5.6 % (4.0-6.0)
[2025-11-09 11:01] LABS: Alanine Aminotransferase 32 IU/L (<50); Albumin 4.6 g/dL (3.5-5.0); Albumin Globulin Ratio 1.9 (1.0-2.8); Alkaline Phosphatase 81 U/L (38-126); Blood Urea Nitrogen 18 mg/dL (9-20); Calcium 9.2 mg/dL (8.4-10.2); Carbon Dioxide 22 mmol/L (22-32); Chloride 106 mmol/L (98-107); Cholesterol 200 mg/dL (140-199); Estimated Glomerular Filt Rate > 60 mL/min (>60); Globulin 2.4 g/dL (1.7-4.1); Glucose 112 mg/dL (70-99); HDL Cholesterol 76 mg/dL (40-60); HEMOLYSIS 18 (0-50); Potassium 4.6 mmol/L (3.4-5.1); Sodium 139 mmol/L (137-145); Total Protein 7.0 g/dL (6.3-8.2); Triglycerides 96 mg/dL (35-150)
[2025-11-09 11:32] LABS: TSH w/ Reflex to FT4 4.11 uIU/mL (0.47-4.68)
== END ==
PROVIDERS: PCP Family Medicine; Referring Provider Family Medicine; Visit Provider Family Medicine
DX: Z00.00 Encounter for general adult medical examination without abnormal findings (principal); Z12.5 Encounter for screening for malignant neoplasm of prostate; I10 Essential (primary) hypertension; R73.09 Other abnormal glucose; E66.3 Overweight; R73.9 Hyperglycemia, unspecified
CPT/HCPCS: 36415; 80053; 80061; 82043; 82570; 83036; 84443; 85025; G0103